=== PATIENT | male | born 1950 | race Caucasian/White ===

== ENCOUNTER 2016-04-30 07:32 | Inpatient (IN) | payer MEDICARE, BC ==
[2016-04-30] VITALS (23 sets, daily range): BP systolic 127–176; BP diastolic 62–100; PULSE 59–108; RESP 16–20; TEMP 97.4–98.8; O2SAT 93–100
[~2016-04-30] VITALS: Ht 162.6 cm; Wt 71.5 kg
[~2016-04-30 07:32] MED LIST: AMLO5TAB22 PO; ASPI81TA82 PO; ATOR80TA41 PO; CALC0.5C6 PO; CENTTAB9 PO; COUM2.5T PO; FURO80 PO; ISOS10TA35 PO; LIDOCAINE HCL 2% 100 MG/5 ML SYRINGE IV PUSH ONE; METO100T PO; MEXI150C PO; NITR0.4S SL; PROT40TA PO
[2016-04-30] MEDS ORDERED: SODIUM CHLORIDE 0.9% FLUSH 5 ML FLUSH IVF PRN (07:45)
[2016-04-30] MEDS ORDERED: SODIUM CHLOR 0.9% 1000 ML INJ 1,000 ML IV ONE (07:45)
[2016-04-30] MEDS ORDERED: NITROGLYCERIN 0.4 MG SL 25 TABS/BTL SL STA (07:45)
[2016-04-30] MEDS ORDERED: ASPIRIN 81 MG CHEW TAB PO STA (07:45)
--- NOTE | 2016-04-30 07:56 | PD ---
HPI Chief Complaint: Chest Pain Time Seen by Provider: 07:41 Travel History International Travel<30 days: No Contact w/Intl Traveler<30days: No Traveled to known affect area: No History of Present Illness HPI This is a 66-year-old male who is a patient of Dr. Angelo Bermeo has had multiple stents placed in the past 2 presents to the emergency Department with onset of chest discomfort at 4 AM this morning described as in the center of his chest, constant, moderate associated with tingling in his left arm, diaphoresis, nausea and some shortness of breath. PFSH Past Medical History Hx Anticoagulant Therapy: Yes (COUMADIN) Arthritis: Yes (RIGHT KNEE, BACK) Heart Rhythm Problems: Yes Cancer: No Cardiovascular Problems: Yes High Cholesterol: Yes Chest Pain: Yes Congestive Heart Failure: Yes Coronary Artery Disease: Yes Diminished Hearing: No Endocrine: No Gastrointestinal Disorders: No Genitourinary: Yes Hypertension: Yes Immune Disorder: No Implanted Vascular Access Dvce: Yes Kidney Stones: Yes Musculoskeletal: Yes (ROTATOR CUFF, RT LEG SURGERY) Neurologic: No Psychiatric: No Reproductive: No Respiratory: No Integumentary: Yes (MRSA) Myocardial Infarction: Yes (TPA) Renal Failure: Yes (2010) Past Surgical History Abdominal Aneurysm Repair: Yes Abdominal Surgery: Yes (aaa repair) AICD: Yes Body Medical Devices: DEFIBRILLATOR Cardiac Surgery: Yes (PACE/ DIFIB, RT/LTCAROTID, 3 vessel bypass) Coronary Artery Bypass Graft: Yes Coronary Stent: Yes (MULTI FEM, HEART) Pacemaker: Yes Valve Replacement: Yes (MITRAL) Other Surgery: Yes Social History Alcohol Use: Yes (rare) Tobacco Use: No (quit 1998) Substance Use: No Allergies-Medications (Allergen,Severity, Reaction): Coded Allergies: No Known Allergies (Unverified , 01/24/15) Reported Meds & Prescriptions Reported Meds & Active Scripts Active Review of Systems Except as stated in HPI: all other systems reviewed are Neg Physical Exam Narrative GENERAL:Well appearing, no acute distress SKIN: Warm and dry. HEAD: Atraumatic. Normocephalic. EYES: Pupils equal and round. No injection or drainage. ENT: Moist mucous membranes NECK: Trachea midline. CARDIOVASCULAR: Regular rate and rhythm. No murmur appreciated. RESPIRATORY: Clear to auscultation. Breath sounds equal bilaterally. GASTROINTESTINAL: Abdomen soft, non-tender, nondistended. MUSCULOSKELETAL: No obvious deformities. NEUROLOGICAL: Awake and alert. No obvious cranial nerve deficits. Moving all extremities PSYCHIATRIC: Appropriate mood and affect; insight and judgment normal. Data Data Last Documented VS Vital Signs Date Time Temp Pulse Resp B/P Pulse Ox O2 Delivery O2 Flow Rate FiO2 04/30/16 07:51 98 Nasal Cannula 2.00 04/30/16 07:40 101 161/100 04/30/16 07:34 97.9 16 Orders Electrocardiogram (04/30/16 ) Troponin I (04/30/16 07:45) Ckmb (Isoenzyme) Profile (04/30/16 07:45) Complete Blood Count With Diff (04/30/16 07:45) I-Stat Profile (04/30/16 07:45) I-Stat Creatinine (04/30/16 07:45) Calcium (04/30/16 07:45) Magnesium (Mg) (04/30/16 07:45) Prothrombin Time / Inr (Pt) (04/30/16 07:45) Act Partial Throm Time (Ptt) (04/30/16 07:45) B-Type Natriuretic Peptide (04/30/16 07:45) Chest, Single Ap (04/30/16 07:45) Oxygen Administration (04/30/16 07:45) Iv Access Insert/Monitor (04/30/16 07:45) Oximetry (04/30/16 07:45) Sodium Chlor 0.9% 1000 Ml Inj (Ns 1000 M (04/30/16 07:45) Sodium Chloride 0.9% Flush (Ns Flush) (04/30/16 07:45) Nitroglycerin Sl (Nitrostat Sl) (04/30/16 07:45) Nitroglycerin-Dextrose Inj (Nitroglyceri (04/30/16 07:45) Aspirin Chew (Aspirin Chew) (04/30/16 07:45) Admit Order (Ed Use Only) (04/30/16 07:56) CKMB (04/30/16 07:55) CKMB% (04/30/16 07:55) Labs Laboratory Tests Test 04/30/16 07:55 White Blood Count 7.9 TH/MM3 Red Blood Count 4.51 MIL/MM3 Hemoglobin 14.1 GM/DL Bedside Hemoglobin 13.9 G/DL Hematocrit 41.1 % Bedside Hematocrit 41.0 % Mean Corpuscular Volume 91.0 FL Mean Corpuscular Hemoglobin 31.3 PG Mean Corpuscular Hemoglobin 34.4 % Concent Red Cell Distribution Width 16.4 % Platelet Count 93 TH/MM3 Mean Platelet Volume 9.2 FL Neutrophils (%) (Auto) 72.0 % Lymphocytes (%) (Auto) 16.9 % Monocytes (%) (Auto) 8.7 % Eosinophils (%) (Auto) 1.5 % Basophils (%) (Auto) 0.9 % Neutrophils # (Auto) 5.7 TH/MM3 Lymphocytes # (Auto) 1.3 TH/MM3 Monocytes # (Auto) 0.7 TH/MM3 Eosinophils # (Auto) 0.1 TH/MM3 Basophils # (Auto) 0.1 TH/MM3 CBC Comment AUTO DIFF Differential Comment AUTO DIFF CONFIRMED Platelet Estimate LOW Platelet Morphology Comment NORMAL Ovalocytes 1+ Prothrombin Time 29.4 SEC Prothromb Time International 2.6 RATIO Ratio Activated Partial 39.7 SEC Thromboplast Time Bedside Sodium 140 MMOL/L Bedside Potassium 5.0 MMOL/L Bedside Chloride 105 MMOL/L Bedside Blood Urea Nitrogen 60 MG/DL Bedside Creatinine 2.0 MG/DL Bedside Glucose 141 MG/DL Calcium Level 8.7 MG/DL Magnesium Level 2.1 MG/DL Total Creatine Kinase 123 U/L Creatine Kinase MB 1.1 NG/ML Troponin I 0.81 NG/ML B-Type Natriuretic Peptide 479 PG/ML MDM Medical Decision Making Medical Screen Exam Complete: Yes Emergency Medical Condition: Yes Interpretation(s) EKG: wide complex, heart rate 102, st segment elevation in II, III and avF, as well as the lateral leads, with st depressions in the inferior leads, q waves inferiorly and laterally, conduction delay and st changes are new from ekg from 2013 Differential Diagnosis STEMI, nSTEMI, pericarditis, pulmonary embolism, pneumonia Narrative Course This is a 66-year-old male who presents to the emergency department with a long history of coronary artery disease and recurrent ventricular tachycardia. He comes in with chest discomfort that started this morning at 4 AM. He is a concerning story for acute coronary syndrome. EKG demonstrates a wide-complex tachycardia. Given its ischemic appearance and the patient's reported history I activated a STEMI alert. Dr. Mauricio came to the bedside and evaluated the patient. Given the patient's history he felt like the patient's symptoms are likely due to ventricular tachycardia. Patient was given amiodarone, lidocaine , and ultimately the decision was made to cardiovert the patient. Cardioversion well without complication. Patient will be admitted to the intensive care unit for further management. Critical Care Narrative Aggregate critical care time was 45 minutes. Time to perform other separately billable procedures was not included in the critical care time. My time did not include minutes spent treating any other patients simultaneously or on activities that did not directly contribute to the patient's treatment. The services I provided to this patient were to treat and/or prevent clinically significant deterioration that could result in: Disability, I provided critical care services requiring my management, as noted below: Chart data review, documentation time, medication orders and management, vital sign assessments/reviewing monitor data, ordering and reviewing lab tests, ordering and interpreting/reviewing x-rays and diagnostic studies, care of the patient and discussion of the patient with the admitting physicians. Procedures Procedure Narrative A synchronized cardioversion was performed along with Dr. Mauricio from cardiology at the bedside. Patient was given 2 mg of Versed for sedation. A synchronized cardioversion was performed at 100 J. Patient tolerated the procedure well. Physician Communication Physician Communication Discussed with Dr. Mauricio and Dr. Duran Diagnosis Primary Impression: Ventricular tachycardia Admitting Information Admitting Physician Requests: Admit Alethea Ingram MD Apr 30, 2016 07:56 Physician Communication Discussed with Dr. Mauricio Diagnosis Primary Impression: Ventricular tachycardia Admitting Information Admitting Physician Requests: it Alethea Ingram MD Apr 30, 2016 07:56
[2016-04-30] MEDS: NITROGLYCERIN-DEXTROSE INJ 250 ML IV SCH (07:59)
[2016-04-30] MEDS ORDERED: AMIODARONE INJ 150 MG in DEXTROSE 5% IN WATER 100ML INJ 97 ML IV ONE ×2 (08:00)
--- NOTE | 2016-04-30 08:02 | RADRPT ---
EXAM DATE/TIME: 04/30/2016 07:52 [facility] COMPARISON: CHEST SINGLE AP, July 06, 2014, 6:29. INDICATIONS : Stemi Alert MEDICAL HISTORY : Cardiovascular disease. SURGICAL HISTORY : CABG. Pacemaker. ENCOUNTER: Initial ACUITY: 1 day PAIN SCORE: 6/10 LOCATION: Bilateral chest FINDINGS: Portable AP view of the chest demonstrate stable mild enlargement of cardiac silhouette in this patie nt post median sternotomy and valve replacement. Left chest wall cardiac pacing device has AICD remai ns present. No effusion, consolidation, or pneumothorax is visualized. Bones and soft tissues demonst rate no acute finding. Please note that the full left costophrenic angle is not visualized. CONCLUSION: Stable mild enlargement of the cardiac silhouette. Otherwise, no acute finding is identified given th e technique. Simón Callaway MD on April 30, 2016 at 8:00 Board Certified Radiologist. This report was verified electronically.
[2016-04-30 08:08] LABS: I-STAT SODIUM 140 MMOL/L (138-146)
[2016-04-30 08:10] LABS: AUTOMATED NEUTROPHIL # 5.7 TH/MM3 (1.8-7.7); BASOPHIL # 0.1 TH/MM3 (0-0.2); BASOPHIL % 0.9 % (0.0-2.0); EOSINOPHIL # 0.1 TH/MM3 (0-0.4); EOSINOPHIL % 1.5 % (0.0-4.0); HEMATOCRIT 41.1 % (39.0-51.0); LYMPH % 16.9 % (9.0-44.0); LYMPHOCYTE # 1.3 TH/MM3 (1.0-4.8); MEAN CORPUSCULAR HEMOGLOBIN 31.3 PG (27.0-34.0); MEAN CORPUSCULAR HGB CONC 34.4 % (32.0-36.0); MONO % 8.7 % (0.0-8.0); PLATELET COUNT 93 TH/MM3 (150-450); RED BLOOD COUNT 4.51 MIL/MM3 (4.50-5.90); RED CELL DISTRIBUTION WIDTH 16.4 % (11.6-17.2); WHITE BLOOD COUNT 7.9 TH/MM3 (4.0-11.0)
[2016-04-30 08:14] LABS: HEMO FLAGS AUTO DIFF
[2016-04-30 08:17] LABS: APTT (PATIENT) 39.7 SEC (24.3-30.1); INTERNATIONAL NORMALIZED RATIO 2.6 RATIO; PROTHROMBIN TIME - PATIENT 29.4 SEC (9.8-11.6)
[2016-04-30 08:25] LABS: CREATINE KINASE 123 U/L (39-308); MAGNESIUM 2.1 MG/DL (1.5-2.5)
[2016-04-30 08:39] LABS: CKMB 1.1 NG/ML (0.5-3.6); OVALOCYTES 1+ (NORMAL); PLATELET ESTIMATE SMEAR LOW (NORMAL); PLATELET MORPHOLOGY NORMAL (NORMAL); SCAN/DIFF AUTO DIFF CONFIRMED
[2016-04-30] MEDS ORDERED: MIDAZOLAM HCL 2 MG/2 ML VIAL IV PUSH ONE (09:00)
[2016-04-30] MEDS ORDERED: LIDOCAINE HCL 2% 100 MG/5 ML SYRINGE IV PUSH ONE (09:00)
[2016-04-30] MEDS ORDERED: FURO1TAB61 PO (09:47)
[2016-04-30] MEDS ORDERED: MEXI150C PO (09:47)
[2016-04-30] MEDS ORDERED: COUM5TAB PO (09:47)
[2016-04-30] MEDS ORDERED: ATOR1TAB18 PO (09:47)
[2016-04-30] MEDS ORDERED: PANT40TA3 PO (09:47)
[2016-04-30] MEDS ORDERED: SOTA120T PO (09:47)
[2016-04-30] MEDS ORDERED: METO50TA PO (09:47)
[2016-04-30] MEDS ORDERED: ISOS60TA PO (09:47)
[2016-04-30] MEDS ORDERED: MISCELLANEOUS NURSING INFORMATION XX SCH (11:00)
[2016-04-30] MEDS ORDERED: CHLORHEXIDINE GLUCONATE 2 % 1 PACK (2 CLOTHS) TOP PRN (11:00)
[2016-04-30] MEDS: LIDOCAINE/D5W INJ 500 ML IV SCH (11:00)
[2016-04-30] MEDS ORDERED: RESP: ALBUTEROL 2.5 MG/IPRATROPIUM 0.5 MG NEB (PRN) INH (11:00)
[2016-04-30] MEDS: RESP: ALBUTEROL 2.5 MG/IPRATROPIUM 0.5 MG NEB (SCH) INH ×4 (11:48→23:30)
[2016-04-30 12:25] LABS: ALT (GPT) 17 U/L (12-78); ANION GAP 6 MEQ/L (5-15); AST (GOT) 27 U/L (15-37); BICARBONATE 27.8 MEQ/L (21.0-32.0); BLOOD UREA NITROGEN 42 MG/DL (7-18); CHLORIDE 109 MEQ/L (98-107); GLOMERULAR FILTRATION RATE 38 ML/MIN (>89); POTASSIUM 4.4 MEQ/L (3.5-5.1); SODIUM (NA) 143 MEQ/L (136-145)
[2016-04-30 12:27] LABS: ALKALINE PHOSPHATASE 103 U/L (45-117); TOTAL BILIRUBIN ADULT 0.5 MG/DL (0.2-1.0)
--- NOTE | 2016-04-30 12:42 | MH ---
cc: SWATI BURRELL M.D. DATE OF ADMISSION: 04/30/2016 DATE OF : 1950 ADMITTING DIAGNOSIS: HISTORY OF PRESENT ILLNESS: The patient is a 66-year-old male with past medical history of coronary artery disease with previous CABG, ischemic cardiomyopathy with EF of 30-35% as June of 2014, status post AICD placement and previous and mechanical mitral valve replacement, in July 1996 on Coumadin.. He presented to [facility] ED with a history of midsternal chest pain. This started at 4 o'clock this morning and localized. He denies any associated symptoms of shortness of breath, edema of the lower extremity, orthopnea or PND. In addition, the patient denies any cough or constitutional symptoms. He was initially presented as a STEMI alert, however, his EKG showed wide complex tachycardia and the patient was evaluated by Dr. Mauricio from cardiology service. He was given amiodarone and lidocaine boluses. The patient also has a history of recurrent V-tach and has been on sotalol at home. He underwent synchronized cardioversion in the ED with 100 joules and the patient tolerated the procedure well. He received Versed 2 mg IV for sedation. LABORATORY DATA: His laboratory data is significant for troponin of 0.81, BNP of 479. His point of care labs showed a creatinine of 2.0 and BUN of 60. Other significant labs showed a coagulopathy with an with an INR of 2.6, PT 29.4 and PTT 39.7. X-RAYS: Chest x-ray in the ER showed mild enlargement of the cardiac silhouette, otherwise no acute findings identified. The patient was eventually placed on lidocaine drip. PAST MEDICAL HISTORY: Significant for coronary artery disease with a previous CABG in 1996 and stent placements, history of carotid artery disease, peripheral vascular disease, history of recurrent V-tach, ischemic cardiomyopathy with EF of 30 to 35%, chronic renal insufficiency, baseline creatinine around 2.0. PAST SURGICAL HISTORY 1. Previous CABG in . 2. Previous right carotid endarterectomy in 1996. 3. Left carotid endarterectomy in April of 1998. 4. Previous left fem pop bypass in 1990. 5. Status post abdominal aortic aneurysm repair in January of 2008. 6. Aortobifemoral bypass and repair of the right common iliac aneurysm January 2008 as well. 7. Previous AICD implant. 8. Previous mitral valve replacement July 1996. Mechanical valve. ALLERGIES NO KNOWN DRUG ALLERGIES. FAMILY HISTORY Noncontributory. SOCIAL HISTORY Patient is an ex-smoker quit smoking in the . Social drinker. MEDICATIONS Medications include: 1. Coumadin. 2. Metoprolol. 3. Sotalol 4. Atorvastatin. 5. Lasix. 6. Imdur 7. Protonix. REVIEW OF SYSTEMS As per HPI. The rest of the review of systems is unremarkable. PHYSICAL EXAMINATION: The patient is a 66 year-old male lying in bed, in no acute respiratory distress. VITAL SIGNS: Temperature 97.4, pulse 59, blood pressure 155/83. Saturation 99% on three liters oxygen. HEENT: Atraumatic, normocephalic. Pupil equal and active to light and accommodation. Extraocular muscles intact. Conjunctivae pink, nonicteric sclerae. Oral mucosa within normal. Neck: Supple. No JVD, adenopathy or thyromegaly. Trachea midline. CARDIOVASCULAR: Regular rate and rhythm. Normal S1-S2. No murmurs, rubs or gallops noted. PULMONARY: Bilateral equal air entry. No rales or wheezing. ABDOMEN: Soft, nontender. No distension. Positive bowel sounds. EXTREMITIES: No cyanosis, clubbing or edema. NEUROLOGIC: No focal sensory deficit. LABORATORY DATA: WBC 7.9, hemoglobin 14.1, hematocrit 41, platelet count 93. Sodium 140, potassium 5, chloride 105, BUN is 60, creatinine 2, glucose 141, troponin 0.81, BNP 479, INR 2.6, PT 29.4, PTT 39.7. RADIOLOGIC STUDIES: Chest x-ray showed mild enlargement of the cardiac silhouette, otherwise no acute findings identified. EKG from 07:42 a.m. showed atrial pacemaker at a rate of 67 beats per minute. Moderate T-wave abnormalities. IMPRESSION 1. Recurrent ventricular tachycardia 2. Respiratory insufficiency. 3. Mechanical mitral valve replacement. 4. Previous AICD placement. 5. Ischemic cardiomyopathy with EF of 30 to 35%. 6. Chronic kidney disease. 7. Coagulopathy secondary to Coumadin. 8. History of coronary artery disease. 9. CABG. 10. Peripheral vascular disease. 11. History of hypertension. RECOMMENDATIONS Monitor neuro status and avoid any sedatives. The patient is awake and alert. Continue with oxygen and maintain sats above 92%. Bronchodilator on a p.r.n. basis. Monitor heart rate and blood pressure closely. Maintain MAP greater than 65 mmHg. The patient is status post synchronized cardioversion with 100 joules in the ED. In addition he received amiodarone and lidocaine boluses. Continue with a lidocaine drip for now. The case discussed with Dr. Mauricio. Will obtain 2-D echocardiogram to evaluate LV function. His last echo from June 2014 showed an EF of 30 to 35%. Monitor renal function, I&O and avoid nephrotoxins. Place on heart healthy diet. Monitor for signs of infection which include fever and WBC. Will hold off on antibiotics at this time as there is no evidence of any infectious process. The patient is afebrile and no evidence of any leukocytosis. His chest x-ray in the ED showed no obvious infiltrates or effusions. Will obtain baseline urinalysis with cultures if indicated. Monitor CBC, PT/INR and continue with Coumadin. His INR was therapeutic at 2.6 on arrival. Pharmacy to manage Coumadin dosing. Sliding scale insulin with Accu-Cheks if needed for glycemic control. GI prophylaxis with Protonix 40 milligrams daily and DVT prophylaxis with SCDs. Will continue with Coumadin. The case discussed with nursing staff and Dr. Mauricio from cardiology. Critical care time: 50 minutes excluding procedures. MD SETH Neely/CHATO /11:15 AM /12:08 PM
--- NOTE | 2016-04-30 13:32 | MB ---
cc: CHADD LEE,DEQUAN PRUITT,SEGUNDO Juarez M.D. DATE OF CONSULTATION: 04/30/2016 REASON FOR CONSULTATION / CHIEF COMPLAINT: Ventricular tachycardia. PRIMARY CARE PHYSICIAN: Dr. Chadd Lee. PRIMARY HOUSE CLEANER: Dr. Segundo Bermeo. HISTORY OF PRESENT ILLNESS: Pablo Hurd is a pleasant 66-year-old male who presented to [facility] on April 30, 2016 complaining of chest pain. He states that the chest pain started around 04:00 a.m. and he tried to work his way through it. He took one nitroglycerin which seemed to help slightly. Upon presenting to the emergency room, EKG was done and there was concern for S-T elevations. I was called emergently to the emergency room for consideration of going to the cardiac catheterization lab. Review of the EKG shows a wide complex tachycardia less likely slow ventricular tachycardia. The patient he states that he had chest pain in the center his chest with tingling into his left arm somewhat. Since being in the emergency room, the chest pain was now a 0. He continues to be in slow ventricular rhythm at 103 beats per minute. PAST MEDICAL HISTORY: 1. Coronary artery disease. 2. Carotid artery disease. 3. Peripheral vascular disease. 4. Ischemic cardiomyopathy with an ejection fraction of 30% to 35% by echocardiogram (July 06, 2014). 5. History of nephrolithiasis. 6. Sustained ventricular tachycardia with multiple episodes of ICD firing in the past. 7. Chronic renal insufficiency. PAST SURGICAL HISTORY: 1. Coronary artery bypass grafting (1996). 2. Multiple stent placements including a 3 mm Multi-Link into the vein graft of the diagonal (November 16, 1999), a 3.5 mm Taxus stent in the vein graft to the diagonal (February 12, 2006), a 2.5 mm Taxus stent in the first obtuse marginal (August 16, 2007). 3. Right carotid endarterectomy (July of 1996). 4. Left carotid endarterectomy (April of 1998). 5. Left femoropopliteal bypass (1990). 6. Abdominal aortic aneurysm repair (January of 2008). 7. Aortobifemoral bypass and repair of a right common iliac aneurysm (January of 2008). 8. Renal artery reimplantation during the time of his abdominal aortic aneurysm repair (January of 2008). 9. Placement of a Medtronic AICD (February of 2006). 10. Mechanical mitral valve replacement (July of 1996). ALLERGIES: NO KNOWN DRUG ALLERGIES. MEDICATIONS: 1. Coumadin 2.5 milligrams daily. 2. Metoprolol tartrate 100 milligrams twice a day. 3. Lipitor 80 milligrams every night. 4. Lasix 40 milligrams daily. 5. Imdur 60 milligrams daily. 6. Nitro sublingual as needed. 7. Aspirin 81 milligrams daily. 8. Mexiletine 50 milligrams three times a day. 9. Protonix 40 milligrams daily. 10. Calcitriol 0.5 micrograms Sunday through . FAMILY HISTORY: Denies premature coronary artery disease or sudden cardiac within the family. SOCIAL HISTORY: The patient quit smoking in 1998. He denies alcohol abuse. REVIEW OF SYSTEMS Fourteen systems were reviewed including osteopathic with pertinent positives and negatives as above; otherwise negative. PHYSICAL EXAMINATION VITAL SIGNS: Temperature 97.9, heart rate 103, blood pressure 127/79, respirations 20, pulse ox 99% on 2 liters. GENERAL: In general, the patient appears in no acute distress. Awake, alert and oriented times three. HEAD, EYES, EARS, NOSE, THROAT: Extraocular muscles intact. Mucous membranes moist. NECK: The neck is supple. No JVD at 45 degrees. HEART: Regular rate and rhythm. Positive first and second heart sounds with a crisp mechanical click. LUNGS: Decreased breath sounds at bilateral bases, but no overt wheezes, rales or rhonchi. ABDOMEN: The abdomen is soft, nontender and nondistended. No organomegaly noted. EXTREMITIES: No clubbing, cyanosis or edema. Femoral and distal pulses are intact bilaterally. NEUROLOGIC: No focal deficits. SKIN: Warm, dry and intact. OSTEOPATHIC: Osteopathically, no kyphoscoliosis, lordosis or paraspinal tender points. LABORATORY WORK: Hemoglobin 14.1, hematocrit 41.1, platelets 93,000. INR 2.6. Potassium 5.0, BUN 60, creatinine 2.0. Troponin 0.81. EKGS: Electrocardiogram (April 30, 2016 at 07:42): Wide complex tachycardia most likely slow ventricular tachycardia. IMPRESSION: 1. Slow ventricular tachycardia with a history of multiple episodes of ventricular tachycardia. 2. Chest pain due to ventricular tachycardia. 3. Coronary artery disease as above. 4. Peripheral vascular disease with a history of left and right carotid endarterectomy, femoropopliteal bypass, abdominal aortic aneurysm repair, aortobifemoral bypass with repair of the right common iliac aneurysm. 5. History of Medtronic AICD implantation (February of 2006). 6. Mechanical mitral valve replacement (July 26, 1996). 7. Ischemic cardiomyopathy with a previous ejection fraction of 30% to 35% by echocardiogram (June 19, 2014). RECOMMENDATIONS: 1. Mr. Hurd appears to be an slow ventricular tachycardia. We will attempt to treat this with amiodarone and lidocaine. 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 2. He may need electrical cardioversion for his slow ventricular tachycardia if unable to pharmacologically convert. 3. We will attempt to have Medtr[employer] come in and interrogate his pacemaker. 4. Elevated troponin most likely from slow ventricular tachycardia since 04:00 a.m. but may need further ischemic work up 5. We will discuss with Dr. Rai about possible need for a ventricular tachycardia ablation versus changes in his ICD management. Thank you for allowing me to see Pablo Hurd. If there are any questions, please do not hesitate to call. Dequan Mauricio DO VGP/JCC /8:39 AM /1:12 PM REBECCA
[2016-04-30] MEDS ORDERED: WARFARIN SOD 2.5 MG TAB PO SCH (16:00)
--- NOTE | 2016-04-30 23:12 | EKG ---
Date Performed: 04/30/2016 Time Performed: 09:06:02 PTAGE: 66 years EKG: ELECTRONIC ATRIAL PACEMAKER INFERIOR MYOCARDIAL INFARCTION MODERATE T-WAVE ABNORMALITY, CON PEDIATRIC DIETICIAN LATERAL ISCHEMIA ABNORMAL ECG PREVIOUS TRACING : 04/30/2016 07.42 Compared to the previous tracing, patient is no longer in v entricular tachycardia, now atrial paced DOCTOR: Dequan Mauricio Interpretating Date/Time 04/30/2016 23:11:08
--- NOTE | 2016-04-30 23:15 | EKG ---
Date Performed: 04/30/2016 Time Performed: 07:42:04 PTAGE: 66 years EKG: Slow ventricular tachycardia, Clinical correlation is recommended PREVIOUS TRACING : 07/03/2014 15.26 Compared to the previous tracing, patient is in VT DOCTOR: Dequan Mauricio Interpretating Date/Time 04/30/2016 23:14:58
[2016-05-01] VITALS (22 sets, daily range): BP systolic 142–169; BP diastolic 71–81; PULSE 59–61; RESP 16–20; TEMP 98.1–98.6; O2SAT 94–99
[2016-05-01] MEDS: LIDOCAINE/D5W INJ 500 ML IV SCH ×2 (02:00→18:40)
[2016-05-01] MEDS: CHLORHEXIDINE GLUCONATE 2 % 1 PACK (2 CLOTHS) TOP SCH (04:00)
[2016-05-01] MEDS: RESP: ALBUTEROL 2.5 MG/IPRATROPIUM 0.5 MG NEB (SCH) INH ×5 (04:10→19:50)
[2016-05-01 04:36] LABS: AUTOMATED NEUTROPHIL # 2.7 TH/MM3 (1.8-7.7); BASOPHIL % 0.6 % (0.0-2.0); EOSINOPHIL # 0.1 TH/MM3 (0-0.4); EOSINOPHIL % 1.8 % (0.0-4.0); HEMATOCRIT 35.3 % (39.0-51.0); LYMPHOCYTE # 0.9 TH/MM3 (1.0-4.8); MEAN CELL VOLUME 89.7 FL (80.0-100.0); MEAN CORPUSCULAR HEMOGLOBIN 30.7 PG (27.0-34.0); MEAN CORPUSCULAR HGB CONC 34.2 % (32.0-36.0); MONO % 8.7 % (0.0-8.0); NEUT % 65.9 % (16.0-70.0); PLATELET COUNT 53 TH/MM3 (150-450); RED BLOOD COUNT 3.93 MIL/MM3 (4.50-5.90); RED CELL DISTRIBUTION WIDTH 16.1 % (11.6-17.2); WHITE BLOOD COUNT 4.1 TH/MM3 (4.0-11.0)
[2016-05-01 04:39] LABS: HEMO FLAGS AUTO DIFF
[2016-05-01 04:45] LABS: INTERNATIONAL NORMALIZED RATIO 2.6 RATIO; PROTHROMBIN TIME - PATIENT 30.1 SEC (9.8-11.6)
[2016-05-01 05:05] LABS: ALT (GPT) 17 U/L (12-78); ANION GAP 8 MEQ/L (5-15); AST (GOT) 25 U/L (15-37); BICARBONATE 26.5 MEQ/L (21.0-32.0); BLOOD UREA NITROGEN 39 MG/DL (7-18); CHLORIDE 108 MEQ/L (98-107); GLOMERULAR FILTRATION RATE 42 ML/MIN (>89); POTASSIUM 4.2 MEQ/L (3.5-5.1); SODIUM (NA) 142 MEQ/L (136-145)
[2016-05-01 05:08] LABS: ALKALINE PHOSPHATASE 92 U/L (45-117); TOTAL BILIRUBIN ADULT 0.5 MG/DL (0.2-1.0)
[2016-05-01 07:56] LABS: PLATELET ESTIMATE SMEAR LOW (NORMAL); PLATELET MORPHOLOGY NORMAL (NORMAL); SCAN/DIFF AUTO DIFF CONFIRMED
--- NOTE | 2016-05-01 08:52 | HHI.CCPN ---
Subjective Remarks/Hospital Course The patient is a 66-year-old male with past medical history of coronary artery disease with previous CABG, ischemic cardiomyopathy with EF of 30-35% as June of 2014, status post AICD placement and previous and mechanical mitral valve replacement, in July 1996 on Coumadin.. He presented to [facility] ED with a history of midsternal chest pain. This started at 4 o'clock this morning and localized. He denies any associated symptoms of shortness of breath, edema of the lower extremity, orthopnea or PND. In addition, the patient denies any cough or constitutional symptoms. He was initially presented as a STEMI alert, however, his EKG showed wide complex tachycardia and the patient was evaluated by Dr. Mauricio from cardiology service. He was given amiodarone and lidocaine boluses. The patient also has a history of recurrent V -tach and has been on sotalol at home. He underwent synchronized cardioversion in the ED with 100 joules and the patient tolerated the procedure well. He received Versed 2 mg IV for sedation. SUBJ 05/01: No VTAC overnight. Currently on Lidocaine infusion. Restart metoprolol with holding parameters. Mexiletine and sotalol will be held per Dr. Mauricio. Consult with EP Dr. Rai pending at this time. Coumadin DCd, Started on IV Heparin, once INR closer to normal plan for cardiac catheterization Objective Vital Signs Date Time Temp Pulse Resp B/P Pulse Ox O2 Delivery O2 Flow Rate FiO2 05/01/16 08:00 59 05/01/16 07:25 94 Nasal Cannula 3.00 05/01/16 07:00 98.1 16 159/79 Result Diagram: 05/01/16 0419 05/01/16 0419 Objective Remarks The patient is a 66 year-old male lying in bed, in no acute respiratory distress. HEENT: Atraumatic, normocephalic. Pupil equal and reactive to light Neck: Supple. No JVD, adenopathy or thyromegaly. Trachea midline. CARDIOVASCULAR: Regular rate and rhythm. Normal S1-S2. No murmurs, rubs or gallops noted. Left upper chest AICD in place PULMONARY: Bilateral equal air entry. No rales or wheezing. ABDOMEN: Soft, nontender. No distension. Positive bowel sounds. EXTREMITIES: No cyanosis, clubbing or edema. NEUROLOGIC: Alert awake oriented 3 no focal deficits A/P Assessment and Plan IMPRESSION Recurrent ventricular tachycardia s/p Mechanical mitral valve replacement on Coumadin Previous AICD placement. Ischemic cardiomyopathy with EF of 30 to 35%. Chronic kidney disease. History of coronary artery disease. CABG. Peripheral vascular disease. History of hypertension. RECOMMENDATIONS NEURO: -Monitor neuro status and avoid any sedatives. RESP: -Continue with oxygen and maintain sats above 92%. -Bronchodilator on a p.r.n. basis. CVS: -The patient is status post synchronized cardioversion with 100 joules in the ED. In addition he received amiodarone and lidocaine boluses. -Continue with a lidocaine drip for now. The case discussed with Dr. Mauricio. EP consulted -Resume metoprolol 100 BID. Keep holding mexiletine and sotalol until EP consulted -2-D echocardiogram to evaluate LV function pending. His last echo from June 2014 showed an EF of 30 to 35%. -Hold Coumadin, start IV heparin. Once INR is close to normal, plan for cardiac catheterization -Keep potassium more than 4, magnesium more than 2 : -Monitor renal function, I&O and avoid nephrotoxins. GI: -Heart healthy diet. ID: -Monitor for signs of infection which include fever and WBC. Hold off on antibiotics at this time as there is no evidence of any infectious process. -The patient is afebrile and no evidence of any leukocytosis. His chest x-ray in the ED showed no obvious infiltrates or effusions. O -Obtain baseline urinalysis with cultures if indicated. Heme: -Monitor CBC, PT/INR and hod Coumadin, start IV Heparin. His INR was therapeutic at 2.6 on arrival. Endo: -Sliding scale insulin with Accu-Cheks if needed for glycemic control. -Keep potassium more than 4, magnesium more than 2 Proph: -GI prophylaxis with Protonix 40 milligrams daily and DVT prophylaxis with SCDs. IV Heparin The case discussed with nursing staff and Dr. Mauricio from cardiology. Level 3 Dariel Gr MD May 01, 2016 08:51
[2016-05-01] MEDS: PANTOPRAZOLE SODIUM 40 MG VIAL IV SCH (09:00)
[2016-05-01] MEDS ORDERED: POTASSIUM PHOSPHATE MONOBASIC 500 MG TAB PO PRN (09:00)
[2016-05-01] MEDS ORDERED: HEPARIN-D5W INJ 250 ML IV SCH (09:00)
[2016-05-01] MEDS ORDERED: POTASSIUM CL 40 MEQ/30 ML LIQ UDC PO/TUBE PRN ×2 (09:00)
[2016-05-01] MEDS ORDERED: POTASSIUM PHOSPHATE MONOBASIC 500 MG TAB PO/TUBE PRN (09:00)
[2016-05-01] MEDS: METOPROLOL TARTRATE 100 MG TAB PO SCH ×2 (09:00→21:00)
[2016-05-01] MEDS ORDERED: POTASSIUM CHLOR 20 MEQ PREMIX 100 ML IV PRN ×2 (09:00)
[2016-05-01] MEDS ORDERED: POTASSIUM PHOSPHATE INJ 30 MMOL in SODIUM CHLOR 0.9% 250 ML INJ 250 ML IV PRN (09:00)
[2016-05-01] MEDS ORDERED: MAGNESIUM OXIDE 400 MG TAB PO PRN (09:00)
[2016-05-01] MEDS ORDERED: POTASSIUM CHLOR 40 MEQ PREMIX 100 ML IV PRN ×2 (09:00)
[2016-05-01] MEDS ORDERED: MAGNESIUM SULFATE INJ 2 GM in SODIUM CHLORIDE 0.9% INJ 96 ML IV PRN (09:00)
[2016-05-01] MEDS ORDERED: MAGNESIUM SULFATE INJ 4 GM in SODIUM CHLORIDE 0.9% INJ 92 ML IV PRN (09:00)
[2016-05-01] MEDS ORDERED: SODIUM PHOSPHATE INJ 30 MMOL in SODIUM CHLOR 0.9% 250 ML INJ 240 ML IV PRN (09:00)
--- NOTE | 2016-05-01 10:09 | PD.CARD.PN ---
Subjective Subjective Remarks No events over night, no chest pain, no shortness of breath Objective Medications Current Medications Medications (Trade) Dose Ordered Sig/Disha Route Start Time Stop Time Status Last Admin IV Flush 2 ml 2 ml UNSCH PRN IVF 04/30/16 07:45 Nitroglycerin/ Dextrose 250 ml @ 0 mls/hr TITRATE IV 04/30/16 07:45 04/30/16 07:59 (Lidocaine/D5W Inj) 500 ml @ 30 mls/hr [id number] IV 04/30/16 09:20 04/30/16 11:00 (Protonix Inj) 40 mg DAILY IV 05/01/16 09:00 Miscellaneous Information 1 [id number] XX 04/30/16 11:00 (Chlorhexidine 2% Cloth) 3 pack Taper DAILY@04 TOP 05/01/16 04:00 04/27/17 03:59 (Chlorhexidine 2% Cloth) 3 pack UNSCH PRN TOP 04/30/16 11:00 (Lopressor) 100 mg BID PO 05/01/16 09:00 (Heparin Inj) 5,000 units UNSCH PRN IV 05/01/16 15:00 Heparin Sodium (Porcine) 2500 units 2,500 units UNSCH PRN IV 05/01/16 15:00 Heparin Sodium/ Dextrose 250 ml @ 0 mls/hr TITRATE IV 05/01/16 09:00 Potassium Chloride 100 ml @ 50 mls/hr Q2H PRN IV 05/01/16 09:00 (KCl 20 Meq Premix Inj) 100 ml @ 50 mls/hr Q2H PRN IV 05/01/16 09:00 Potassium Chloride 40 meq 40 meq UNSCH PRN PO/TUBE 05/01/16 09:00 Potassium Chloride 100 ml @ 25 mls/hr UNSCH PRN IV 05/01/16 09:00 Potassium Chloride 100 ml @ 50 mls/hr Q2H PRN IV 05/01/16 09:00 (Magnesium Sulfate Inj/NS Inj) 100 ml @ 50 mls/hr UNSCH PRN IV 05/01/16 09:00 Magnesium Oxide 800 mg 800 mg UNSCH PRN PO 05/01/16 09:00 (Magnesium Sulfate Inj/NS Inj) 100 ml @ 50 mls/hr UNSCH PRN IV 05/01/16 09:00 Potassium Phosphate 2000 mg 2,000 mg Q4H PRN PO 05/01/16 09:00 (Sodium Phosphate Inj/NS 250 ml Inj) 250 ml @ 42 mls/hr UNSCH PRN IV 05/01/16 09:00 (KCl 40 Meq/30 ml Liq) 40 meq UNSCH PRN PO/TUBE 05/01/16 09:00 Potassium Phosphate 2000 mg 2,000 mg UNSCH PRN PO/TUBE 05/01/16 09:00 (Potassium Phosphate Inj/NS 250 ml Inj) 260 ml @ 42 mls/hr UNSCH PRN IV 05/01/16 09:00 Vital Signs / I&O Vital Signs Date Time Temp Pulse Resp B/P Pulse Ox O2 Delivery O2 Flow Rate FiO2 05/01/16 08:00 59 05/01/16 07:25 94 Nasal Cannula 3.00 05/01/16 07:00 98.1 59 16 159/79 98 05/01/16 07:00 59 05/01/16 06:00 59 05/01/16 05:00 59 05/01/16 04:00 59 05/01/16 03:00 98.6 59 20 145/75 99 05/01/16 03:00 59 05/01/16 02:00 59 05/01/16 01:00 61 05/01/16 00:00 60 04/30/16 23:00 59 04/30/16 23:00 98.3 59 20 165/82 99 04/30/16 22:00 59 04/30/16 21:00 59 04/30/16 19:24 99 Nasal Cannula 3.00 04/30/16 19:00 98.6 59 20 154/78 99 04/30/16 19:00 59 04/30/16 16:00 98.8 59 20 143/78 98 04/30/16 16:00 59 04/30/16 12:00 59 04/30/16 12:00 97.7 59 16 149/79 99 I/O 04/30/16 04/30/16 04/30/16 05/01/16 05/01/16 05/01/16 07:00 15:00 23:00 07:00 15:00 23:00 Intake Total 864 ml Output Total 1150 ml Balance -286 ml Intake Oral 660 ml IV Total 204 ml Output Urine Total 1150 ml # Bowel Movements 0 Physical Exam GENERAL: NAD, AAOx3 SKIN: Warm and dry. HEAD: Atraumatic. Normocephalic. EYES: Pupils equal and round. No scleral icterus. No injection or drainage. ENT: No nasal bleeding or discharge. Mucous membranes pink and moist. NECK: Trachea midline. No JVD. CARDIOVASCULAR: Regular rate and rhythm. [place] mechanical click. RESPIRATORY: No accessory muscle use. Clear to auscultation. Breath sounds equal bilaterally. GASTROINTESTINAL: Abdomen soft, non-tender, nondistended. Hepatic and splenic margins not palpable. MUSCULOSKELETAL: Extremities without clubbing, cyanosis, or edema. No obvious deformities. NEUROLOGICAL: Awake and alert. No obvious cranial nerve deficits. Motor grossly within normal limits. Five out of 5 muscle strength in the arms and legs. Normal speech. PSYCHIATRIC: Appropriate mood and affect; insight and judgment normal. Laboratory Laboratory Tests Test 04/30/16 04/30/16 05/01/16 11:40 15:46 04:19 Sodium Level 143 MEQ/L 142 MEQ/L Potassium Level 4.4 MEQ/L 4.2 MEQ/L Chloride Level 109 MEQ/L 108 MEQ/L Carbon Dioxide Level 27.8 MEQ/L 26.5 MEQ/L Anion Gap 6 MEQ/L 8 MEQ/L Blood Urea Nitrogen 42 MG/DL 39 MG/DL Creatinine 1.80 MG/DL 1.66 MG/DL Estimat Glomerular Filtration 38 ML/MIN 42 ML/MIN Rate Random Glucose 104 MG/DL 81 MG/DL Calcium Level 8.1 MG/DL 8.1 MG/DL Total Bilirubin 0.5 MG/DL 0.5 MG/DL Aspartate Amino Transf 27 U/L 25 U/L (AST/SGOT) Alanine Aminotransferase 17 U/L 17 U/L (ALT/SGPT) Alkaline Phosphatase 103 U/L 92 U/L Troponin I 0.85 NG/ML 1.07 NG/ML Total Protein 6.5 GM/DL 6.5 GM/DL Albumin 3.3 GM/DL 3.1 GM/DL White Blood Count 4.1 TH/MM3 Red Blood Count 3.93 MIL/MM3 Hemoglobin 12.1 GM/DL Hematocrit 35.3 % Mean Corpuscular Volume 89.7 FL Mean Corpuscular Hemoglobin 30.7 PG Mean Corpuscular Hemoglobin 34.2 % Concent Red Cell Distribution Width 16.1 % Platelet Count 53 TH/MM3 Mean Platelet Volume 8.6 FL Neutrophils (%) (Auto) 65.9 % Lymphocytes (%) (Auto) 23.0 % Monocytes (%) (Auto) 8.7 % Eosinophils (%) (Auto) 1.8 % Basophils (%) (Auto) 0.6 % Neutrophils # (Auto) 2.7 TH/MM3 Lymphocytes # (Auto) 0.9 TH/MM3 Monocytes # (Auto) 0.4 TH/MM3 Eosinophils # (Auto) 0.1 TH/MM3 Basophils # (Auto) 0.0 TH/MM3 CBC Comment AUTO DIFF Differential Comment AUTO DIFF CONFIRMED Platelet Estimate LOW Platelet Morphology Comment NORMAL Prothrombin Time 30.1 SEC Prothromb Time International 2.6 RATIO Ratio Assessment and Plan Problem List: (1) Ventricular tachycardia (2) Ischemic cardiomyopathy (3) Thrombocytopenia (4) Coronary artery disease (5) Chronic anticoagulation (6) NSTEMI (non-ST elevation myocardial infarction) (7) H/O mitral valve replacement Assessment and Plan 1) Slow VT on arrival to the hospital, needing cardioversion 2) Currently stable, no VT over night 3) Continue Lidocaine drip, Sotalol/mexiletine on hold for now, await EP cardiology recs 4) Pablo is unsure he would like to stay for work up, had a long talk with him and he will discuss with his , work up planned would be: Heparin drip, allow INR to decrease Eventual cardiac catheterization, would most likely need Plts before procedure If no ischemic lesions, then EP consideration for ICD changes vs VT ablation Heparin drip and Coumadin until INR back in range 5) Will await decision by Pablo and his 6) Will discuss with Dr. Rai about possible other options for the patient from a medical standpoint Dequan Mauricio DO May 01, 2016 10:09
[2016-05-01 10:58] LABS: HEMATOCRIT 38.7 % (39.0-51.0); MEAN CELL VOLUME 91.9 FL (80.0-100.0); MEAN CORPUSCULAR HEMOGLOBIN 30.2 PG (27.0-34.0); MEAN CORPUSCULAR HGB CONC 32.8 % (32.0-36.0); PLATELET COUNT 67 TH/MM3 (150-450); RED BLOOD COUNT 4.21 MIL/MM3 (4.50-5.90); RED CELL DISTRIBUTION WIDTH 16.4 % (11.6-17.2); WHITE BLOOD COUNT 4.4 TH/MM3 (4.0-11.0)
[2016-05-01 11:00] LABS: REVIEW FLAG FINAL
[2016-05-01 11:07] LABS: APTT (PATIENT) 38.6 SEC (24.3-30.1); INTERNATIONAL NORMALIZED RATIO 2.3 RATIO; PROTHROMBIN TIME - PATIENT 26.9 SEC (9.8-11.6)
[2016-05-01] MEDS: SOTALOL HCL 80 MG TAB PO SCH ×2 (13:17→21:24)
[2016-05-01] MEDS: MEXILETINE 150 MG PO SCH ×2 (14:00→22:00)
--- NOTE | 2016-05-01 14:36 | MB ---
cc: YARI CARRANZA HANSCY M.D. DATE OF CONSULTATION: 05/01/2016 REASON FOR CONSULTATION Ventricular tachycardia. HISTORY OF PRESENT ILLNESS Mr. Hurd is a 66-year-old gentleman with a history of coronary artery disease, ischemic cardiomyopathy, peripheral vascular disease, coronary artery bypass grafting, multiple stents, carotid endarterectomy, abdominal aortic aneurysm repair, previous defibrillator implant in 2005. He has a prosthetic valve at mitral valve position. He was admitted due to ventricular tachycardia. The patient was in a slow VT. Subsequently he was cardioverted. Troponin increased. The first one was 0.81. The patient was seen by the quarter supervisor. I was consulted for further evaluation and management. The chart was reviewed. The patient was evaluated. ALLERGIES None. SOCIAL HISTORY At this point the patient denies smoking and drinking. FAMILY HISTORY Noncontributory to his current medical condition. MEDICATIONS 1. Coumadin. 2. Metoprolol 100 mg twice a day. 3. Lipitor 80 mg a day. 4. Lasix 40 mg a day. 5. Imdur 60 mg a day. 6. Aspirin. 7. Mexiletine. 8. Protonix. 9. Calcitriol. REVIEW OF SYSTEMS The patient refers currently no chest pain, no chest discomfort, no vomiting, no fever. PHYSICAL EXAMINATION GENERAL: Alert, fully oriented, in bed. VITAL SIGNS: Blood pressure 115/79, pulse 59, respiratory rate 20. LUNGS: Ventilated. CARDIOVASCULAR: S1, S2 regular. No gallop. ABDOMEN: Soft. No mass. EXTREMITIES: No edema. EKG Electrocardiogram on admission showed ventricular tachycardia. Previous electrocardiogram done in June 2014 indicates sinus rhythm, poor R-wave progression, diffuse ST changes. LABORATORY Hemoglobin 12.7, white blood cell count 4.4. Potassium 4.20, creatinine 1.66. Troponin 1.07. INR 2.6. ASSESSMENT AND RECOMMENDATION Mr. Hurd has ventricular tachycardia. He has severe ischemic cardiomyopathy. He has a previous defibrillator inserted for sudden prevention. The ventricular tachycardia was below the detection zone. The gentleman is already on a beta-yunior. His blood pressure is still high. His troponin increased to 1.07. He will need a left heart catheterization. Based on the result of the left heart catheterization a decision for VT ablation will be taken. I discussed the case extensively with him and his . I explained to the gentleman he needs to have a left heart catheterization but the decision is all his. Apparently he is n.p.o. and case scheduled by Dr. Carranza. The patient apparently wants to go home. If there is no need for revascularization he can be discharged home and follow with me as an outpatient for ventricular tachycardia ablation evaluation. The patient apparently refused to stay because he has things to do at home. Mel Rai MD HS/BT /11:13 AM /2:27 PM
[2016-05-01] MEDS ORDERED: HEPARIN SODIUM - IV 10,000 UNITS/10 ML VIAL IV PRN ×2 (15:00)
--- NOTE | 2016-05-01 16:31 | PD.CONS ---
HPI Service [facility] Hospitalists Consult Requested By Dr. Gr Reason for Consult Medical management, tx from [facility] [place] Primary Care Physician Jr Singleton DO Diagnoses: History of Present Illness This a 66-year-old male with past medical history of cardiomyopathy has AICD, coronary artery disease with previous CABG, mechanical mitral valve replacement in 1996 on chronic anticoagulation with Coumadin, carotid artery disease, prior non-STEMI, CAD and stents. Patient presented to the emergency room on 2016 with complaining of chest pain. During initial evaluation in the emergency room, STEMI alert was called however his EKG showed wide complex tachycardia. Patient received amiodarone and lidocaine boluses. Patient had history of recurrent DVT and had been on sotalol at home. He underwent synchronized cardioversion and to ED with 100 J and patient tolerated procedure well, he was sedated with Versed. Patient evaluated Dr. Burk, patient was noted to be in a slow V. tach. He has consulted Dr. Rai for further evaluation, patient may need cardiac catheterization. Patient was admitted to the intensive care unit under the ad compositor care. Lidocaine drip has been discontinued and the patient was restarted on sotalol. Coumadin is on hold, INR 2.3. Currently patient is on a heparin drip. He has some nitroglycerin treatment mics for chest pain. He has had very little ectopy overnight, no more episodes of ventricular tachycardia. He was also noted with a significant drop in platelets, they went from 93-53. Hematology consult has been put in place. Patient is hemodynamically stable, denies any chest pain, no shortness of breath. He is agreeable with undergoing cardiac catheterization tomorrow. Hospitalist services are requested to assume medical management. (Nathalie Nina) Review of Systems Constitutional: DENIES: Diaphoretic episodes, Fatigue, Fever, Weight gain, Weight loss, Chills, Dizziness, Change in appetite, Night Sweats Endocrine: DENIES: Heat/cold intolerance, Polydipsia, Polyuria, Polyphagia Eyes: DENIES: Blurred vision, Diplopia, Eye inflammation, Eye pain, Vision loss , Photosensitivity, Double Vision Ears, nose, mouth, throat: DENIES: Tinnitus, Hearing loss, Vertigo, Nasal discharge, Oral lesions, Throat pain, Hoarseness, Ear Pain, Running Nose, Epistaxis, Sinus Pain, Toothache, Odynophagia Cardiovascular: COMPLAINS OF: Chest pain, DENIES: Palpitations, Syncope, Dyspnea on Exertion, PND, Lower Extremity Edema, Orthopnea, Claudication Gastrointestinal: DENIES: Abdominal pain, Black stools, Bloody stools, Constipation, Diarrhea, Nausea, Vomiting, Difficulty Swallowing, Anorexia Genitourinary: DENIES: Sexual dysfunction, Urinary frequency, Urinary incontinence, Urgency, Hematuria, Dysuria, Nocturia, Penile Discharge, Testicular Pain, Testicular Swelling Musculoskeletal: DENIES: Joint pain, Muscle aches, Stiffness, Joint Swelling, Back pain, Neck pain Hematologic/lymphatic: DENIES: Bruising, Lymphadenopathy Immunologic/allergic: DENIES: Eczema, Urticaria Neurologic: DENIES: Abnormal gait, Headache, Localized weakness, Paresthesias, Seizures, Speech Problems, Tremor, Poor Balance Psychiatric: DENIES: Anxiety, Confusion, Mood changes, Depression, Hallucinations, Agitation, Suicidal Ideation, Homicidal Ideation, Delusions ( Nathalie Nina) Past Family Social History Past Medical History 1. Coronary artery disease. 2. Carotid artery disease. 3. Peripheral vascular disease. 4. Ischemic cardiomyopathy with an ejection fraction of 30% to 35% by echocardiogram (July 06, 2014). 5. History of nephrolithiasis. 6.ventricular tachycardia 7. Chronic renal insufficiency. Past Surgical History 1. Coronary artery bypass grafting (1996). 2. Multiple stent placements including a 3 mm Multi-Link into the vein graft of the diagonal (November 16, 1999), a 3.5 mm Taxus stent in the vein graft to the diagonal (February 12, 2006), a 2.5 mm Taxus stent in the first obtuse marginal (August 16, 2007). 3. Right carotid endarterectomy (July of 1996). 4. Left carotid endarterectomy (April of 1998). 5. Left femoropopliteal bypass (1990). 6. Abdominal aortic aneurysm repair (January of 2008). 7. Aortobifemoral bypass and repair of a right common iliac aneurysm (January of 2008). 8. Renal artery reimplantation during the time of his abdominal aortic aneurysm repair (January of 2008). 9. Placement of a Medtronic AICD (February of 2006). 10. Mechanical mitral valve replacement (July of 1996). Reported Medications Reported Meds & Active Scripts Active Reported Sotalol (Sotalol HCl) 120 Mg Tab 120 Mg PO BID Pantoprazole (Pantoprazole Sodium) 40 Mg Tab 40 Mg PO DAILY Mexiletine (Mexiletine HCl) 150 Mg Cap 150 Mg PO Q8H Metoprolol Tartrate 50 Mg Tab 100 Mg PO BID Atorvastatin (Atorvastatin Calcium) 80 Mg Tab 80 Mg PO DAILY Isosorbide Mononitrate ER (Isosorbide Mononitrate) 60 Mg Tab 120 Mg PO DAILY Lasix (Furosemide) 80 Mg Tab 40 Mg PO DAILY Coumadin (Warfarin) 5 Mg Tab 2.5 Mg PO DAILY BRAND MEDICALLY NECESSARY (Nathalie Nina) Allergies: Coded Allergies: No Known Allergies (Unverified , 01/24/15) Active Ordered Medications Inpatient Medications Albuterol/ Ipratropium (Duoneb Neb) 1 ampule Q2HR NEB PRN INH WHEEZING; Start 04/30/16 at 11:00 Amiodarone HCl/ Dextrose (Cordarone Inj/ D5W 100 ml Inj) 100 ml @ 600 mls/hr ONCE ONCE IV Last administered on 04/30/16t 08:00; Start 04/30/16 at 08:00; Stop 04/30/16 at 08:09; Status DC Aspirin 162 mg 162 mg NOW STAT PO Last administered on 04/30/16t 07:45; Start 04/30/16 at 07:45; Stop 04/30/16 at 07:47; Status DC Chlorhexidine Gluconate (Chlorhexidine 2% Cloth) 3 pack Taper DAILY@04 TOP ; Start 05/01/16 at 04:00; Stop 04/27/17 at 03:59 Chlorhexidine Gluconate 3 pack 3 pack UNSCH PRN TOP HYGIENIC CARE; Start at 11:00 Heparin Sodium (Porcine) (Heparin Inj) 5,000 units UNSCH PRN IV APTT LESS THAN 25; Start 05/01/16 at 15:00 Heparin Sodium (Porcine) 2500 units 2,500 units UNSCH PRN IV APTT 25 TO 39; Start 05/01/16 at 15:00 Heparin Sodium/ Dextrose 250 ml @ 0 mls/hr TITRATE IV ; Start 05/01/16 at 09:00 IV Flush (NS Flush) 2 ml UNSCH PRN IVF FLUSH AFTER USING IV ACCESS; Start 04/30 at 07:45 Lidocaine HCl (Xylocaine 2% Inj) 100 mg ONCE ONCE IV PUSH Last administered on 04/30/16 08:38; Start 04/30/16 at 09:00; Stop 04/30/16 at 09:01; Status DC Lidocaine HCl/ Dextrose (Lidocaine/D5W Inj) 500 ml @ 30 mls/hr [id number] IV Last administered on 04/30/16 11:00; Start 04/30/16 at 09:20 Magnesium Oxide 800 mg 800 mg UNSCH PRN PO For Magnesium 1.2 - 1.6 mg/dL; Start 05/01/16 at 09:00 Magnesium Sulfate 2 gm/Sodium Chloride 100 ml @ 50 mls/hr UNSCH PRN IV For Magnesium 1.2 - 1.6 mg/dL; Start 05/01/16 at 09:00 Magnesium Sulfate/ Sodium Chloride (Magnesium Sulfate Inj/NS Inj) 100 ml @ 50 mls/hr UNSCH PRN IV For Magnesium 0.9 - 1.1 mg/dL; Start 05/01/16 at 09:00 Metoprolol Tartrate (Lopressor) 100 mg BID PO ; Start 05/01/16 at 09:00 Midazolam HCl 2 mg 2 mg ONCE ONCE IV PUSH Last administered on 04/30/16 09:01 ; Start 04/30/16 at 09:00; Stop 04/30/16 at 09:01; Status DC Miscellaneous Information 1 [id number] ; Start 04/30/16 at 11:00 Nitroglycerin 0.4 mg 0.4 mg NOW STAT SL Last administered on 04/30/16 07:45; Start 04/30/16 at 07:45; Stop 04/30/16 at 07:47; Status DC Nitroglycerin/ Dextrose (Nitroglycerin-Dextrose Inj) 250 ml @ 0 mls/hr TITRATE IV Last administered on 04/30/16 07:59; Start 04/30/16 at 07:45 Pantoprazole Sodium (Protonix Inj) 40 mg DAILY IV ; Start 05/01/16 at 09:00 Patient Own Medication PT OWN MED: M[facility]ILE[facility]... Q8H PO ; Start 05/01/16 at 14:00 Pharmacy Profile Note (Coumadin Consult Pharmacy) 0 ml @ 0 mls/hr UNSCH OTHER ; Start 04/30/16 at 11:30; Stop 04/30/16 at 22:30; Status DC Potassium Chloride 40 meq 40 meq UNSCH PRN PO/TUBE For Potassium 3.3 - 3.5 mEq/ L; Start 05/01/16 at 09:00 Potassium Phosphate 2000 mg 2,000 mg UNSCH PRN PO/TUBE SEE LABEL COMMENTS; Start 05/01/16 at 09:00 Potassium Phosphate/Sodium Chloride (Potassium Phosphate Inj/NS 250 ml Inj) 260 ml @ 42 mls/hr UNSCH PRN IV SEE LABEL COMMENTS; Start 05/01/16 at 09:00 Potassium Chloride (KCl 20 Meq Premix Inj) 100 ml @ 50 mls/hr Q2H PRN IV For Potassium 2.8 - 3.2 mEq/L; Start 05/01/16 at 09:00 Potassium Chloride (KCl 40 Meq/30 ml Liq) 40 meq UNSCH PRN PO/TUBE SEE LABEL COMMENTS; Start 05/01/16 at 09:00 Sodium Chloride (NS 1000 ml Inj) 1,000 ml @ 0 mls/hr Q0M ONCE IV Last administered on 04/30/16 07:45; Start 04/30/16 at 07:45; Stop 04/30/16 at 07:47 ; Status DC Sodium Phosphate/ Sodium Chloride (Sodium Phosphate Inj/NS 250 ml Inj) 250 ml @ 42 mls/hr UNSCH PRN IV For Phosphorus < 2.5 mg/dL; Start 05/01/16 at 09:00 Sotalol HCl (Betapace) 120 mg BID PO Last administered on 05/01/16 13:17; Start 05/01/16 at 13:00 Warfarin Sodium (Coumadin) 2.5 mg DAILY@16 PO Last administered on 04/30/16 15 :51; Start 04/30/16 at 16:00; Stop 04/30/16 at 22:31; Status DC Family History Reviewed, non contributory Social History , lives with . No ETOH, no substance abuse, no smoking. (Nathalie Nina) Physical Exam Vital Signs Vital Signs Date Time Temp Pulse Resp B/P Pulse Ox O2 Delivery O2 Flow Rate FiO2 05/01/16 14:00 59 05/01/16 13:00 59 05/01/16 12:00 60 05/01/16 11:00 60 05/01/16 11:00 98.3 60 16 161/71 97 05/01/16 10:00 60 05/01/16 08:00 59 05/01/16 07:25 94 Nasal Cannula 3.00 05/01/16 07:00 98.1 59 16 159/79 98 05/01/16 07:00 59 05/01/16 06:00 59 05/01/16 05:00 59 05/01/16 04:00 59 05/01/16 03:00 98.6 59 20 145/75 99 05/01/16 03:00 59 05/01/16 02:00 59 05/01/16 01:00 61 05/01/16 00:00 60 04/30/16 23:00 59 04/30/16 23:00 98.3 59 20 165/82 99 04/30/16 22:00 59 04/30/16 21:00 59 04/30/16 19:24 99 Nasal Cannula 3.00 04/30/16 19:00 98.6 59 20 154/78 99 04/30/16 19:00 59 Physical Exam GENERAL: This is a well-nourished, well-developed patient, in no apparent distress. SKIN: No rashes, ecchymoses or lesions. Cool and dry. HEAD: Atraumatic. Normocephalic. No temporal or scalp tenderness. EYES: Pupils equal round and reactive. Extraocular motions intact. No scleral icterus. No injection or drainage. ENT: Nose without bleeding, purulent drainage or septal hematoma. Throat without erythema, tonsillar hypertrophy or exudate. Uvula midline. Airway patent. NECK: Trachea midline. No JVD or lymphadenopathy. Supple, nontender, no meningeal signs. CARDIOVASCULAR: Regular rate and rhythm without murmurs, gallops, or rubs. RESPIRATORY: Clear to auscultation. Breath sounds equal bilaterally. No wheezes , rales, or rhonchi. GASTROINTESTINAL: Abdomen soft, non-tender, nondistended. No hepato-splenomegaly , or palpable masses. No guarding. MUSCULOSKELETAL: Extremities without clubbing, cyanosis, or edema. Chronic venous discoloration. No joint tenderness, effusion, or edema noted. No calf tenderness. Negative Homans sign bilaterally. NEUROLOGICAL: Awake and alert. Cranial nerves II through XII intact. Motor and sensory grossly within normal limits. Five out of 5 muscle strength in all muscle groups. Normal speech. Laboratory Laboratory Tests Test 05/01/16 05/01/16 04:19 09:52 White Blood Count 4.1 4.4 Red Blood Count 3.93 4.21 Hemoglobin 12.1 12.7 Hematocrit 35.3 38.7 Mean Corpuscular Volume 89.7 91.9 Mean Corpuscular Hemoglobin 30.7 30.2 Mean Corpuscular Hemoglobin 34.2 32.8 Concent Red Cell Distribution Width 16.1 16.4 Platelet Count 53 67 Mean Platelet Volume 8.6 8.7 Neutrophils (%) (Auto) 65.9 Lymphocytes (%) (Auto) 23.0 Monocytes (%) (Auto) 8.7 Eosinophils (%) (Auto) 1.8 Basophils (%) (Auto) 0.6 Neutrophils # (Auto) 2.7 Lymphocytes # (Auto) 0.9 Monocytes # (Auto) 0.4 Eosinophils # (Auto) 0.1 Basophils # (Auto) 0.0 CBC Comment AUTO DIFF Differential Comment AUTO DIFF CONFIRMED Platelet Estimate LOW Platelet Morphology Comment NORMAL Prothrombin Time 30.1 26.9 Prothromb Time International 2.6 2.3 Ratio Sodium Level 142 Potassium Level 4.2 Chloride Level 108 Carbon Dioxide Level 26.5 Anion Gap 8 Blood Urea Nitrogen 39 Creatinine 1.66 Estimat Glomerular Filtration 42 Rate Random Glucose 81 Calcium Level 8.1 Total Bilirubin 0.5 Aspartate Amino Transf 25 (AST/SGOT) Alanine Aminotransferase 17 (ALT/SGPT) Alkaline Phosphatase 92 Total Protein 6.5 Albumin 3.1 Activated Partial 38.6 Thromboplast Time Phosphorus Level 2.1 Vitamin B12 Level 716 (Nathalie Nina) Result Diagram: 05/01/16 0952 05/01/16 0419 Imaging Last Impressions Chest X-Ray 04/30/16 0745 Signed Impressions: Service Date/Time: Saturday, April 30, 2016 07:52 - CONCLUSION: Stable mild enlargement of the cardiac silhouette. Otherwise, no acute finding is identified given the technique. Simón Callaway MD (Nathalie Nina) A/P Diagnosis: (1) Ventricular tachycardia (2) Coronary artery disease (3) Ischemic cardiomyopathy (4) Chronic anticoagulation (5) H/O mitral valve replacement (6) Benign hypertension (7) Hyperlipidemia (8) Thrombocytopenia Assessment and Plan Thank you for this consultation, we will assume medical management 66-year-old male with significant past medical history of CAD, NE, stent, AICD, ischemic cardiomyopathy, V. tach. Admitted with c/o chest pain and elevated troponin. Initially code STEMI however patient found in slow VT, status post cardioversion. -Dr. Burk and Dr. Rai following -Pt. going for cardiac cath tomorrow -Coumadin, on hold, continue Heparin drip -Continue with Nitroglycerine drip -Continue Sotalol and Lopressor Thrombocytopenia, etiology unclear Hematology consultation, pending -Monitor CBC Monitor for bleeding Renal insufficiency, creatinine appears stable. Monitor BMP closely Coronary artery disease with previous non-STEMI and CABG Continue home medications Ischemic cardiomyopathy, has AICD Continue with home medications History of mechanical mitral valve replacement, on chronic anticoagulation Continue on heparin drip. Continue with heparin for DVT prophylaxis Protonix for GI prophylaxis Plan of care has been discussed with the patient and his , their questions answered in detail. Plan of care discussed with attending and registered nurse. Further management of the patient will be dependent on the hospital course This patient was seen by myself and Dr. Nice, this consultation is written on his behalf (Nathalie Nina) Assessment and Plan pt is seen & examined d/w PT & his d/w nathalie agree w above cont current tx will f/u (Micah Nice MD) Problem Qualifiers (1) Coronary artery disease: Qualified Code: I25.118 - Coronary artery disease of kashia artery of kashia heart with stable angina pectoris (2) Hyperlipidemia: Qualified Code: E78.5 - Hyperlipidemia, unspecified hyperlipidemia type Nathalie Nina May 01, 2016 16:31 Micah Nice MD May 01, 2016 17:20
[2016-05-01 18:14] LABS: APTT (PATIENT) 80.9 SEC (24.3-30.1)
--- NOTE | 2016-05-01 21:00 | EC ---
Study Study Date:05/01/2016 STUDY CONCLUSIONS SUMMARY - Left ventricle: The cavity size was dilated. Wall thickness was increased in a pattern of mild LVH. Systolic function was severely reduced. The estimated ejection fraction was 25%. Wall motion was normal; there were no regional wall motion abnormalities. - Mitral valve: MV prosthesis present. Transvalvular velocity was within the normal range. There was no evidence for stenosis. - Left atrium: The atrium was mildly dilated. - Tricuspid valve: Mild regurgitation. - Pulmonary arteries: Systolic pressure was mildly increased. PA peak pressure: 47mm Hg (S). If LV function is below 40, please consider prescribing an ACEI or ARB or document rationale for non-use. PROCEDURE DATA STUDY STATUS: Elective. Procedure: Transthoracic echocardiography. Image quality was good. Scanning was performed from the parasternal, apical, and subcostal acoustic windows. Study completion: The patient tolerated the procedure well. Transthoracic echocardiography. M-mode, complete 2D, complete spectral Doppler, and color Doppler. Height: Height: 64in. Weight: Weight: 155.7lb. Body mass index: BMI: 26.8kg/m^2. Body surface area: BSA: 1.76m^2. Patient status: Inpatient. CARDIAC ANATOMY LEFT VENTRICLE: The cavity size was dilated. Wall thickness was increased in a pattern of mild LVH. Systolic function was severely reduced. The estimated ejection fraction was 25%. Wall motion was normal; there were no regional wall motion abnormalities. AORTIC VALVE: Trileaflet; normal thickness leaflets. Doppler: Transvalvular velocity was within the normal range. There was no stenosis. No regurgitation. Valve area: 1.16cm^2(VTI). Indexed valve area: 0.66cm^2/m^2 (VTI). Valve area: 1.25cm^2 (Vmax). Indexed valve area: 0.71cm^2/m^2 (Vmax). Mean gradient: 2mm Hg (S). AORTA: Aortic root: The aortic root was normal in size. MITRAL VALVE: MV prosthesis present. Doppler: Transvalvular velocity was within the normal range. There was no evidence for stenosis. No regurgitation. Valve area by pressure half-time: 2.08cm^2. Indexed valve area by pressure half-time: 1.18cm^2/m^2. Valve area by continuity equation (using LVOT flow): 0.72cm^2. Indexed valve area by continuity equation (using LVOT flow): 0.41cm^2/m^2. Mean gradient: 3mm Hg (D). Peak gradient: 6mm Hg (D). LEFT ATRIUM: The atrium was mildly dilated. RIGHT VENTRICLE: The cavity size was normal. Wall thickness was normal. PULMONIC VALVE: Doppler: Transvalvular velocity was within the normal range. There was no evidence for stenosis. No regurgitation. TRICUSPID VALVE: Structurally normal valve. Doppler: Transvalvular velocity was within the normal range. Mild regurgitation. PULMONARY ARTERY: The main pulmonary artery was normal-sized. Systolic pressure was mildly increased. RIGHT ATRIUM: The atrium was normal in size. PERICARDIUM: There was no pericardial effusion. SYSTEMIC VEINS: Inferior vena cava: The vessel was normal in size. Patient weight: 155.7lb _Ejection fraction:_ 65-75% _Fractional shortening:_ 32% up to 5Kg 5-11.5Kg 11.6-22.9Kg 23-45Kg 45-57Kg Aortic Root 7-13 <17 13-22 17-27 17-27 LA diam 6-13 <23 24-38 33-47 37-40 RVID 10-17 7-15 7-15 7-18 8-17 LVIDd 12-22 <32 24-38 33-47 37-40 LVPW 2-4 3-6 5-7 6-8 7-8 IVS 2-4 3-6 5-7 6-8 7-8 BASIC MEASUREMENTS ADULT NORMAL Left ventricle LV internal dimension, ED, chordal 51.8 mm 43-52 level, PLAX LV internal dimension, ES, chordal *48.4 mm 23-38 level, PLAX Fractional shortening, chordal level, *7 % >29 PLAX LV posterior wall thickness, ED 10.6 mm IVS/LVPW ratio, ED *1.39 <1.3 Ventricular septum Septal thickness, ED 14.7 mm Aortic valve Leaflet separation 15 mm 15-26 Aorta Root diameter, ED 27 mm Left atrium Anterior-posterior dimension 41 mm Anterior-posterior dimension index *2.33 cm/m^2 <2.2 BASIC MEASUREMENTS ADULT NORMAL Aortic valve Leaflet separation 15 mm 15-26 DOPPLER MEASUREMENTS ADULT NORMAL Main pulmonary artery Pressure, S *47 mm Hg =30 Aortic valve Peak velocity, S 99.3 cm/s Mean velocity, S 64.5 cm/s VTI, S 34.5 cm Mean gradient, S 2 mm Hg Valve area, VTI 1.16 cm^2 Valve area index, VTI 0.66 cm^2/m^2 Valve area, Vmax 1.25 cm^2 Valve area index, Vmax 0.71 cm^2/m^2 Mitral valve Peak E-wave velocity 167 cm/s Peak A-wave velocity 104 cm/s Mean velocity, D 78.6 cm/s Deceleration time 229 ms 150-230 Pressure half-time 106 ms Mean gradient, D 3 mm Hg Peak gradient, D 6 mm Hg Peak E/A ratio 1.6 Valve area, pressure half-time 2.08 cm^2 Valve area index, pressure half-time 1.18 cm^2/m^2 Valve area, LVOT continuity 0.72 cm^2 Valve area index, LVOT continuity 0.41 cm^2/m^2 Tricuspid valve Regurgitant peak velocity 307 cm/s Peak RV-RA gradient, S 38 mm Hg Systemic veins Estimated CVP 10 mm Hg Right ventricle RV pressure, S *48 mm Hg <30 Pulmonic valve Peak velocity, S 53.4 cm/s LEGEND: Mean values are shown as u=mean value. Asterisk (*) da silva values outside specified normal range. Prepared and signed by Radha Dietz [id number]
[2016-05-02] MEDS: RESP: ALBUTEROL 2.5 MG/IPRATROPIUM 0.5 MG NEB (SCH) INH ×4 (00:25→11:46)
[2016-05-02] MEDS: NITROGLYCERIN-DEXTROSE INJ 250 ML IV SCH (00:26)
[2016-05-02 01:05] LABS: APTT (PATIENT) 46.6 SEC (24.3-30.1); PROTHROMBIN TIME - PATIENT 22.3 SEC (9.8-11.6)
[2016-05-02 03:00] VITALS: BP 158/80; PULSE 59; RESP 18; TEMP 98.6; O2SAT 95
[2016-05-02] MEDS: CHLORHEXIDINE GLUCONATE 2 % 1 PACK (2 CLOTHS) TOP SCH (04:00)
[2016-05-02] MEDS: MEXILETINE 150 MG PO SCH (06:00)
[2016-05-02 06:59] LABS: AUTOMATED NEUTROPHIL # 2.3 TH/MM3 (1.8-7.7); BASOPHIL % 0.6 % (0.0-2.0); EOSINOPHIL # 0.1 TH/MM3 (0-0.4); EOSINOPHIL % 2.4 % (0.0-4.0); HEMATOCRIT 35.1 % (39.0-51.0); LYMPH % 23.2 % (9.0-44.0); LYMPHOCYTE # 0.8 TH/MM3 (1.0-4.8); MEAN CELL VOLUME 90.7 FL (80.0-100.0); MEAN CORPUSCULAR HEMOGLOBIN 30.8 PG (27.0-34.0); NEUT % 63.8 % (16.0-70.0); PLATELET COUNT 50 TH/MM3 (150-450); RED BLOOD COUNT 3.87 MIL/MM3 (4.50-5.90); RED CELL DISTRIBUTION WIDTH 16.6 % (11.6-17.2); WHITE BLOOD COUNT 3.6 TH/MM3 (4.0-11.0)
[2016-05-02 07:00] VITALS: BP 110/72; PULSE 59; RESP 16; TEMP 98; O2SAT 97
[2016-05-02 07:01] LABS: HEMO FLAGS AUTO DIFF
[2016-05-02 07:07] LABS: APTT (PATIENT) 61.1 SEC (24.3-30.1)
[2016-05-02 07:10] VITALS: O2SAT 94
[2016-05-02 07:39] LABS: ALKALINE PHOSPHATASE 91 U/L (45-117); ALT (GPT) 16 U/L (12-78); ANION GAP 7 MEQ/L (5-15); AST (GOT) 25 U/L (15-37); BICARBONATE 27.5 MEQ/L (21.0-32.0); BLOOD UREA NITROGEN 36 MG/DL (7-18); CHLORIDE 108 MEQ/L (98-107); GLOMERULAR FILTRATION RATE 42 ML/MIN (>89); HDL CHOLESTEROL 46.9 MG/DL (40.0-60.0); LDL CHOLESTEROL 73 MG/DL (0-99); POTASSIUM 4.3 MEQ/L (3.5-5.1); SODIUM (NA) 142 MEQ/L (136-145); TOTAL BILIRUBIN ADULT 0.4 MG/DL (0.2-1.0)
--- NOTE | 2016-05-02 08:44 | HHI.PR ---
Subjective Remarks no cp no sob on Ntg 1.5 mcg Heparin gtt no N/V cardiac cath on hold for now no ectopy, afib, HR 60s Objective Objective Results - Vital Signs Date Time Temp Pulse Resp B/P Pulse Ox O2 Delivery O2 Flow Rate FiO2 05/02/16 07:10 94 21 05/02/16 07:00 59 05/02/16 07:00 98.0 59 16 110/72 97 05/02/16 03:00 59 05/02/16 03:00 98.6 59 18 158/80 95 05/02/16 00:35 18 05/01/16 23:00 98.1 59 18 152/81 95 05/01/16 23:00 59 05/01/16 20:11 98.1 59 17 142/72 96 05/01/16 19:50 Nasal Cannula 3.00 05/01/16 19:00 59 05/01/16 18:00 59 05/01/16 17:00 59 05/01/16 16:00 59 05/01/16 15:00 59 05/01/16 15:00 98.1 59 16 169/81 97 05/01/16 14:00 59 05/01/16 13:00 59 05/01/16 12:00 60 05/01/16 11:00 60 05/01/16 11:00 98.3 60 16 161/71 97 05/01/16 10:00 60 I/O 05/01/16 05/01/16 05/01/16 05/02/16 05/02/16 05/02/16 07:00 15:00 23:00 07:00 15:00 23:00 Intake Total 864 ml 818 ml 367 ml Output Total 1150 ml 1500 ml 750 ml Balance -286 ml -682 ml -383 ml Intake Oral 660 ml 600 ml 240 ml IV Total 204 ml 218 ml 127 ml Output Urine Total 1150 ml 1500 ml 750 ml # Voids 7 # Bowel Movements 0 0 Result Diagram: 05/02/1663205/02/1633 Imaging Last Impressions Chest X-Ray 04/30/16 0745 Signed Impressions: Service Date/Time: Saturday, April 30, 2016 07:52 - CONCLUSION: Stable mild enlargement of the cardiac silhouette. Otherwise, no acute finding is identified given the technique. Simón Callaway MD Other Results Laboratory Tests Test 05/01/16 05/01/16 05/02/16 05/02/16 09:52 17:35 00:39 06:33 White Blood Count 4.4 3.6 Red Blood Count 4.21 3.87 Hemoglobin 12.7 11.9 Hematocrit 38.7 35.1 Mean Corpuscular Volume 91.9 90.7 Mean Corpuscular Hemoglobin 30.2 30.8 Mean Corpuscular Hemoglobin 32.8 34.0 Concent Red Cell Distribution Width 16.4 16.6 Platelet Count 67 50 Mean Platelet Volume 8.7 8.5 Prothrombin Time 26.9 22.3 Prothromb Time International 2.3 2.0 Ratio Activated Partial 38.6 80.9 46.6 61.1 Thromboplast Time Phosphorus Level 2.1 Vitamin B12 Level 716 Neutrophils (%) (Auto) 63.8 Lymphocytes (%) (Auto) 23.2 Monocytes (%) (Auto) 10.0 Eosinophils (%) (Auto) 2.4 Basophils (%) (Auto) 0.6 Neutrophils # (Auto) 2.3 Lymphocytes # (Auto) 0.8 Monocytes # (Auto) 0.4 Eosinophils # (Auto) 0.1 Basophils # (Auto) 0.0 CBC Comment AUTO DIFF Sodium Level 142 Potassium Level 4.3 Chloride Level 108 Carbon Dioxide Level 27.5 Anion Gap 7 Blood Urea Nitrogen 36 Creatinine 1.64 Estimat Glomerular Filtration 42 Rate Random Glucose 90 Calcium Level 8.9 Magnesium Level 2.0 Total Bilirubin 0.4 Aspartate Amino Transf 25 (AST/SGOT) Alanine Aminotransferase 16 (ALT/SGPT) Alkaline Phosphatase 91 Total Protein 6.5 Albumin 3.1 Triglycerides Level 124 Cholesterol Level 145 LDL Cholesterol 73 HDL Cholesterol 46.9 Cholesterol/HDL Ratio 3.09 ROS General: No: Fatigue, Weakness HEENT: No: Sore Throat, Dysphagia Cardiac: Chest Pain, No: Edema, Palpitations, Other Pulmonary: No: Cough, SOB, Wheezing GI: No: Abdominal Pain, BM, Diarrhea, N/V /END PACKER: No: Dysuria, Urgency Neuro/MS: No: Lightheaded, Confusion Psych: No: Anxiety, Depression Skin: No: Itching, Rash Physical Exam Physical Exam GENERAL: This is a well-nourished, well-developed patient, in no apparent distress. SKIN: No rashes, ecchymoses or lesions. Cool and dry. HEAD: Atraumatic. Normocephalic. No temporal or scalp tenderness. EYES: Pupils equal round and reactive. Extraocular motions intact. No scleral icterus. No injection or drainage. ENT: Nose without bleeding, purulent drainage or septal hematoma. Throat without erythema, tonsillar hypertrophy or exudate. Uvula midline. Airway patent. NECK: Trachea midline. No JVD or lymphadenopathy. Supple, nontender, no meningeal signs. CARDIOVASCULAR: Regular rate and rhythm without murmurs, gallops, or rubs. RESPIRATORY: Clear to auscultation. Breath sounds equal bilaterally. No wheezes , rales, or rhonchi. GASTROINTESTINAL: Abdomen soft, non-tender, nondistended. No hepato-splenomegaly , or palpable masses. No guarding. MUSCULOSKELETAL: Extremities without clubbing, cyanosis, or edema. Chronic venous discoloration. No joint tenderness, effusion, or edema noted. No calf tenderness. Negative Homans sign bilaterally. NEUROLOGICAL: Awake and alert. Cranial nerves II through XII intact. Motor and sensory grossly within normal limits. Five out of 5 muscle strength in all muscle groups. Normal speech. Urinary Catheter: No Vascular Central Line Catheter: No A/P Diagnosis: (1) Ventricular tachycardia (2) Coronary artery disease (3) Ischemic cardiomyopathy (4) Chronic anticoagulation (5) H/O mitral valve replacement (6) Benign hypertension (7) Hyperlipidemia (8) Thrombocytopenia Assessment and Plan 66-year-old male with significant past medical history of CAD, DE, stent, AICD, ischemic cardiomyopathy, V. tach. Admitted with c/o chest pain and elevated troponin. Initially code STEMI however patient found in slow VT, status post cardioversion. -Dr. Burk and Dr. Rai following -Coumadin, on hold, Heparin gtt -Continue with Nitroglycerine drip -Continue Sotalol and Lopressor -cath on hold. Card may consider STT as OP.No more ectopy on current meds. waiting for Dr. Rai to decide Thrombocytopenia, etiology unclear, plat 50 today Hematology consultation, pending -Monitor CBC Monitor for bleeding Renal insufficiency, creatinine appears stable. Monitor BMP closely Coronary artery disease with previous non-STEMI and CABG Continue home medications Ischemic cardiomyopathy, has AICD Continue with home medications -repeat Echo today EF 25% History of mechanical mitral valve replacement, on chronic anticoagulation Continue on heparin drip. Continue with heparin for DVT prophylaxis Protonix for GI prophylaxis pt. anxious to go home, prefers to have outpatient workup overall improved no more ectopy poss. discharge today depending on cardiac input D/W RN D/W pt D/W Dr. Nice This patient was seen by myself and Dr. Ncie, this note is written on his behalf Problem Qualifiers (1) Coronary artery disease: Qualified Code: I25.118 - Coronary artery disease of [place] artery of [place] heart with stable angina pectoris (2) Hyperlipidemia: Qualified Code: E78.5 - Hyperlipidemia, unspecified hyperlipidemia type Nathalie Nina May 02, 2016 08:44
[2016-05-02 09:00] LABS: OVALOCYTES 1+ (NORMAL); PLATELET ESTIMATE SMEAR LOW (NORMAL); PLATELET MORPHOLOGY NORMAL (NORMAL); SCAN/DIFF AUTO DIFF CONFIRMED
[2016-05-02] MEDS: PANTOPRAZOLE SODIUM 40 MG VIAL IV SCH (09:00)
[2016-05-02] MEDS: METOPROLOL TARTRATE 100 MG TAB PO SCH (09:13)
[2016-05-02] MEDS: SOTALOL HCL 80 MG TAB PO SCH (09:13)
--- NOTE | 2016-05-02 09:18 | PD.CARD.PN ---
Subjective Subjective Remarks Feels ok. Objective Medications Current Medications Medications (Trade) Dose Ordered Sig/Disha Route Start Time Stop Time Status Last Admin IV Flush 2 ml 2 ml UNSCH PRN IVF 04/30/16 07:45 Nitroglycerin/ Dextrose 250 ml @ 0 mls/hr TITRATE IV 04/30/16 07:45 05/02/16 00:26 (Lidocaine/D5W Inj) 500 ml @ 30 mls/hr [id number] IV 04/30/16 09:20 04/30/16 11:00 (Protonix Inj) 40 mg DAILY IV 05/01/16 09:00 Miscellaneous Information 1 [id number] XX 04/30/16 11:00 (Chlorhexidine 2% Cloth) 3 pack Taper DAILY@04 TOP 05/01/16 04:00 04/27/17 03:59 05/02/16 04:00 (Chlorhexidine 2% Cloth) 3 pack UNSCH PRN TOP 04/30/16 11:00 (Lopressor) 100 mg BID PO 05/01/16 09:00 (Heparin Inj) 5,000 units UNSCH PRN IV 05/01/16 15:00 Heparin Sodium (Porcine) 2500 units 2,500 units UNSCH PRN IV 05/01/16 15:00 Heparin Sodium/ Dextrose 250 ml @ 0 mls/hr TITRATE IV 05/01/16 09:00 Potassium Chloride 100 ml @ 50 mls/hr Q2H PRN IV 05/01/16 09:00 (KCl 20 Meq Premix Inj) 100 ml @ 50 mls/hr Q2H PRN IV 05/01/16 09:00 Potassium Chloride 40 meq 40 meq UNSCH PRN PO/TUBE 05/01/16 09:00 Potassium Chloride 100 ml @ 25 mls/hr UNSCH PRN IV 05/01/16 09:00 Potassium Chloride 100 ml @ 50 mls/hr Q2H PRN IV 05/01/16 09:00 (Magnesium Sulfate Inj/NS Inj) 100 ml @ 50 mls/hr UNSCH PRN IV 05/01/16 09:00 Magnesium Oxide 800 mg 800 mg UNSCH PRN PO 05/01/16 09:00 (Magnesium Sulfate Inj/NS Inj) 100 ml @ 50 mls/hr UNSCH PRN IV 05/01/16 09:00 Potassium Phosphate 2000 mg 2,000 mg Q4H PRN PO 05/01/16 09:00 (Sodium Phosphate Inj/NS 250 ml Inj) 250 ml @ 42 mls/hr UNSCH PRN IV 05/01/16 09:00 (KCl 40 Meq/30 ml Liq) 40 meq UNSCH PRN PO/TUBE 05/01/16 09:00 Potassium Phosphate 2000 mg 2,000 mg UNSCH PRN PO/TUBE 05/01/16 09:00 (Potassium Phosphate Inj/NS 250 ml Inj) 260 ml @ 42 mls/hr UNSCH PRN IV 05/01/16 09:00 (Betapace) 120 mg BID PO 05/01/16 13:00 05/01/16 21:24 Patient Own Medication PT OWN MED: [facility]... Q8H PO 05/01/16 14:00 Vital Signs / I&O Vital Signs Date Time Temp Pulse Resp B/P Pulse Ox O2 Delivery O2 Flow Rate FiO2 05/02/16 07:10 94 21 05/02/16 07:00 59 05/02/16 07:00 98.0 59 16 110/72 97 05/02/16 03:00 59 05/02/16 03:00 98.6 59 18 158/80 95 05/02/16 00:35 18 05/01/16 23:00 98.1 59 18 152/81 95 05/01/16 23:00 59 05/01/16 20:11 98.1 59 17 142/72 96 05/01/16 19:50 Nasal Cannula 3.00 05/01/16 19:00 59 05/01/16 18:00 59 05/01/16 17:00 59 05/01/16 16:00 59 05/01/16 15:00 59 05/01/16 15:00 98.1 59 16 169/81 97 05/01/16 14:00 59 05/01/16 13:00 59 05/01/16 12:00 60 05/01/16 11:00 60 05/01/16 11:00 98.3 60 16 161/71 97 05/01/16 10:00 60 I/O 05/01/16 05/01/16 05/01/16 05/02/16 05/02/16 05/02/16 07:00 15:00 23:00 07:00 15:00 23:00 Intake Total 864 ml 818 ml 367 ml Output Total 1150 ml 1500 ml 750 ml Balance -286 ml -682 ml -383 ml Intake Oral 660 ml 600 ml 240 ml IV Total 204 ml 218 ml 127 ml Output Urine Total 1150 ml 1500 ml 750 ml # Voids 7 # Bowel Movements 0 0 Physical Exam GENERAL: Well-nourished, well-developed patient. SKIN: Warm and dry. HEAD: Normocephalic. EYES: No scleral icterus. No injection or drainage. NECK: Supple, trachea midline. No JVD or lymphadenopathy. CARDIOVASCULAR: Regular rate and rhythm without murmurs, gallops, or rubs. RESPIRATORY: Breath sounds equal bilaterally. No accessory muscle use. GASTROINTESTINAL: Abdomen soft, non-tender, nondistended. EXTREMITIES: No cyanosis, or edema. NEUROLOGICAL: Awake, alert, and oriented x 3. Non-focal. Laboratory Laboratory Tests Test 05/01/16 05/01/16 05/02/16 05/02/16 09:52 17:35 00:39 06:33 White Blood Count 4.4 TH/MM3 3.6 TH/MM3 Red Blood Count 4.21 MIL/MM3 3.87 MIL/MM3 Hemoglobin 12.7 GM/DL 11.9 GM/DL Hematocrit 38.7 % 35.1 % Mean Corpuscular Volume 91.9 FL 90.7 FL Mean Corpuscular Hemoglobin 30.2 PG 30.8 PG Mean Corpuscular Hemoglobin 32.8 % 34.0 % Concent Red Cell Distribution Width 16.4 % 16.6 % Platelet Count 67 TH/MM3 50 TH/MM3 Mean Platelet Volume 8.7 FL 8.5 FL Prothrombin Time 26.9 SEC 22.3 SEC Prothromb Time International 2.3 RATIO 2.0 RATIO Ratio Activated Partial 38.6 SEC 80.9 SEC 46.6 SEC 61.1 SEC Thromboplast Time Phosphorus Level 2.1 MG/DL Vitamin B12 Level 716 PG/ML Neutrophils (%) (Auto) 63.8 % Lymphocytes (%) (Auto) 23.2 % Monocytes (%) (Auto) 10.0 % Eosinophils (%) (Auto) 2.4 % Basophils (%) (Auto) 0.6 % Neutrophils # (Auto) 2.3 TH/MM3 Lymphocytes # (Auto) 0.8 TH/MM3 Monocytes # (Auto) 0.4 TH/MM3 Eosinophils # (Auto) 0.1 TH/MM3 Basophils # (Auto) 0.0 TH/MM3 CBC Comment AUTO DIFF Differential Comment AUTO DIFF CONFIRMED Platelet Estimate LOW Platelet Morphology Comment NORMAL Ovalocytes 1+ Sodium Level 142 MEQ/L Potassium Level 4.3 MEQ/L Chloride Level 108 MEQ/L Carbon Dioxide Level 27.5 MEQ/L Anion Gap 7 MEQ/L Blood Urea Nitrogen 36 MG/DL Creatinine 1.64 MG/DL Estimat Glomerular Filtration 42 ML/MIN Rate Random Glucose 90 MG/DL Calcium Level 8.9 MG/DL Magnesium Level 2.0 MG/DL Total Bilirubin 0.4 MG/DL Aspartate Amino Transf 25 U/L (AST/SGOT) Alanine Aminotransferase 16 U/L (ALT/SGPT) Alkaline Phosphatase 91 U/L Total Protein 6.5 GM/DL Albumin 3.1 GM/DL Triglycerides Level 124 MG/DL Cholesterol Level 145 MG/DL LDL Cholesterol 73 MG/DL HDL Cholesterol 46.9 MG/DL Cholesterol/HDL Ratio 3.09 RATIO Assessment and Plan Problem List: (1) Ventricular tachycardia Assessment and Plan: No recurrence overnight. Can be discharged from EP standpoint with outpatient followup per my d/w Dr. Rai. (2) Ischemic cardiomyopathy Assessment and Plan: F/U with Dr. Mauricio in office for a nuclear stress test. Discussed Condition With ELEUTERIO pt., RN, Dr. Rai. Elise Borrero May 02, 2016 09:18
--- NOTE | 2016-05-02 10:15 | MB ---
cc: OLIVA HALL MD, ABDUL J. M.D. DATE OF CONSULTATION: 05/01/2016 REASON FOR CONSULTATION Consult requested by Dr. Hall for evaluation of thrombocytopenia. HISTORY OF PRESENT ILLNESS Pablo is a pleasant 66-year-old male. He has an extensive cardiac history. He has a history of cardiomyopathy and has an AICD. He also has a history of coronary artery disease status post coronary artery bypass surgery and mechanical heart valve replacement, and has been on Coumadin. The patient was admitted to the hospital with chest pain and he was found to have wide complex tachycardia. The patient received cardioversion with a good response. The patient's INR was 2.6 on admission and Coumadin was held for the procedure. The patient has been on heparin. His CBC showed thrombocytopenia with a platelet count of 93 on admission and this morning went down to 53. It was repeated later in the morning and came back 67. Due to the thrombocytopenia I have been asked to see him for further evaluation. The patient has a history of chronic thrombocytopenia. He is under the care of sulfonation equipment operator, Dr. eZn Bonner. 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 The patient has been on Coumadin with a low platelet count and he has not had any bleeding issues. The patient denies any nausea, vomiting, diarrhea. He does not have any chest pains. The patient is anxious to undergo cardiac catheterization tomorrow. PAST MEDICAL HISTORY 1. Coronary artery disease. 2. Peripheral vascular disease. 3. Ischemic cardiomyopathy with an ejection fraction of 30-35%. 4. Kidney stones. 5. Chronic renal insufficiency. PAST SURGICAL HISTORY 1. Coronary artery bypass surgery. 2. Cardiac catheterization with multiple stent placements. 3. Bilateral carotid endarterectomy. 4. Left femoral popliteal bypass surgery. 5. Abdominal aortic aneurysm repair. 6. AICD placement. 7. Mechanical mitral valve replacement in 1996. ALLERGIES None. MEDICATIONS 1. Sotalol. 2. Pantoprazole. 3. Mexiletine. 4. Metoprolol. 5. Atorvastatin. 6. Isosorbide. 7. Lasix. 8. Coumadin. FAMILY HISTORY Noncontributory. SOCIAL HISTORY The patient does not smoke cigarettes, does not drink alcohol. PHYSICAL EXAMINATION GENERAL: A well-developed, well-nourished white male in no apparent distress. VITAL SIGNS: Temperature 98.1, heart rate 50, blood pressure 169/81. O2 saturation 96%. HEENT: PERRLA. EOMI. Anicteric. No oral lesions noted. NECK: Supple. LYMPHATIC: There is no cervical, supraclavicular or axillary lymphadenopathy noted. LUNGS: Clear. No wheezing, rhonchi or rales. HEART: Regular rate and rhythm. ABDOMEN: Soft, nontender. No hepatosplenomegaly. EXTREMITIES: No pedal edema. NEUROLOGIC: Awake, alert, oriented x3. SKIN: No significant lesions are noted. ASSESSMENT 1. Chronic isolated thrombocytopenia dating back to 2012 per EMR records. This is most likely consistent with a chronic ITP until proven otherwise. 2. Mechanical heart valve replacement, currently on Coumadin since 1996. 3. Ischemic cardiomyopathy status post multiple stent placements as well as coronary artery bypass surgery. 4. Ischemic cardiomyopathy with ejection fraction of 30-35%. PLAN I have reviewed his available records and I have discussed with the patient regarding the thrombocytopenia. The patient is under the care of sulfonation equipment operator, Dr. Zen Bonner, for the thrombocytopenia. He has had chronic isolated thrombocytopenia for many years which I believe is due to chronic ITP. The patient stated that his platelet count has been running low and he has been told that he has chronic ITP which does not require any treatment as his platelet count has been remaining above 50,000. The patient has been on Coumadin and with his chronic thrombocytopenia he has not had any significant bleeding. The patient's Coumadin has been put on hold due to cardiac catheterization which is scheduled for tomorrow. The patient is on heparin. Given that his platelet count is above 50,000 and no previous history of bleeding while on Coumadin, I do not recommend any treatment for the chronic ITP at this time. However, if and when his platelet count goes below 50,000 then he could be treated with steroid and IVIG. The patient stated that I should discuss with his regarding the treatment for chronic ITP if and when his platelet count drops below 50,000. My recommendation is to monitor his CBC closely. If and when his platelet count drops below 50,000 then we will treat him with IVIG and oral steroid if the patient and his both agree. Thank you for asking my opinion. MD LAITH Joe/ELAN /10:54 PM /9:56 AM
--- NOTE | 2016-05-02 10:34 | HHI.DCPOC ---
Discharge Care Plan Diagnosis: (1) Ventricular tachycardia (2) Ischemic cardiomyopathy (3) Chronic anticoagulation (4) Benign hypertension (5) Hyperlipidemia (6) Heart valve replaced (7) Thrombocytopenia Your Health Problems Are: Chest Pain Goals to Promote Your Health * To prevent worsening of your condition and complications * To maintain your health at the optimal level Directions to Meet Your Goals Take your medications as prescribed Follow your dietary instruction Follow activity as directed Keep your appointments as scheduled Take your immunizations and boosters as scheduled If your symptoms worsen call your PCP, if no PCP go to Urgent Care Center or Emergency Room Smoking is Dangerous to Your Health. Avoid second hand smoke Call the 24-hour hour crisis hotline for domestic abuse at Nathalie Nina May 02, 2016 10:34
--- NOTE | 2016-05-02 10:36 | HHI.DS ---
Discharge Summary Admission Date Apr 30, 2016 at 07:57 Discharge Date: May 02, 2016 Admitting Diagnosis stemi (1) Ventricular tachycardia (2) Coronary artery disease (3) Ischemic cardiomyopathy (4) Chronic anticoagulation (5) H/O mitral valve replacement (6) Benign hypertension (7) Hyperlipidemia (8) Thrombocytopenia CBC/BMP: 05/02/16 0633 05/02/16 0633 Significant Findings Laboratory Tests Test 04/30/16 04/30/16 04/30/16 05/01/16 07:55 11:40 15:46 04:19 Platelet Count 93 TH/MM3 53 TH/MM3 (150-450) (150-450) Neutrophils (%) (Auto) 72.0 % (16.0-70.0) Monocytes (%) (Auto) 8.7 % (0.0-8.0) 8.7 % (0.0-8.0) Platelet Estimate LOW (NORMAL) LOW (NORMAL) Ovalocytes 1+ (NORMAL) Prothrombin Time 29.4 SEC 30.1 SEC (9.8-11.6) (9.8-11.6) Activated Partial 39.7 SEC Thromboplast Time (24.3-30.1) Bedside Potassium 5.0 MMOL/L (3.5-4.9) Bedside Blood Urea Nitrogen 60 MG/DL (8-26) Bedside Creatinine 2.0 MG/DL (0.8-1.3) Bedside Glucose 141 MG/DL (60-95) Troponin I 0.81 NG/ML 0.85 NG/ML 1.07 NG/ML (0.02-0.05) (0.02-0.05) (0.02-0.05) B-Type Natriuretic Peptide 479 PG/ML (0-100) Chloride Level 109 MEQ/L 108 MEQ/L (98-107) (98-107) Blood Urea Nitrogen 42 MG/DL (7-18) 39 MG/DL (7-18) Creatinine 1.80 MG/DL 1.66 MG/DL (0.60-1.30) (0.60-1.30) Estimat Glomerular Filtration 38 ML/MIN (>89) 42 ML/MIN (>89) Rate Calcium Level 8.1 MG/DL 8.1 MG/DL (8.5-10.1) (8.5-10.1) Albumin 3.3 GM/DL 3.1 GM/DL (3.4-5.0) (3.4-5.0) Red Blood Count 3.93 MIL/MM3 (4.50-5.90) Hemoglobin 12.1 GM/DL (13.0-17.0) Hematocrit 35.3 % (39.0-51.0) Lymphocytes # (Auto) 0.9 TH/MM3 (1.0-4.8) Test 05/01/16 05/01/16 05/02/16 05/02/16 09:52 17:35 00:39 06:33 Red Blood Count 4.21 MIL/MM3 3.87 MIL/MM3 (4.50-5.90) (4.50-5.90) Hemoglobin 12.7 GM/DL 11.9 GM/DL (13.0-17.0) (13.0-17.0) Hematocrit 38.7 % 35.1 % (39.0-51.0) (39.0-51.0) Platelet Count 67 TH/MM3 50 TH/MM3 (150-450) (150-450) Prothrombin Time 26.9 SEC 22.3 SEC (9.8-11.6) (9.8-11.6) Activated Partial 38.6 SEC 80.9 SEC 46.6 SEC 61.1 SEC Thromboplast Time (24.3-30.1) (24.3-30.1) (24.3-30.1) (24.3-30.1) Phosphorus Level 2.1 MG/DL (2.5-4.9) White Blood Count 3.6 TH/MM3 (4.0-11.0) Monocytes (%) (Auto) 10.0 % (0.0-8.0) Lymphocytes # (Auto) 0.8 TH/MM3 (1.0-4.8) Platelet Estimate LOW (NORMAL) Ovalocytes 1+ (NORMAL) Chloride Level 108 MEQ/L (98-107) Blood Urea Nitrogen 36 MG/DL (7-18) Creatinine 1.64 MG/DL (0.60-1.30) Estimat Glomerular Filtration 42 ML/MIN (>89) Rate Albumin 3.1 GM/DL (3.4-5.0) Imaging Last Impressions Chest X-Ray 04/30/16 5883 Signed Impressions: Service Date/Time: Saturday, April 30, 2016 07:52 - CONCLUSION: Stable mild enlargement of the cardiac silhouette. Otherwise, no acute finding is identified given the technique. Simón Callaway MD Hospital Course This a 66-year-old male with past medical history of cardiomyopathy has AICD, coronary artery disease with previous CABG, mechanical mitral valve replacement in 1996 on chronic anticoagulation with Coumadin, carotid artery disease, prior non-STEMI, CAD and stents. Patient presented to the emergency room on 2016 with complaining of chest pain. During initial evaluation in the emergency room, STEMI alert was called however his EKG showed wide complex tachycardia. Patient received amiodarone and lidocaine boluses. Patient had history of recurrent VT and had been on sotalol at home. He underwent synchronized cardioversion in the ED with 100 J and patient tolerated procedure well, he was sedated with Versed. Patient evaluated by Dr. Burk, patient was noted to be in a slow V. tach. He consulted Dr. Rai for further evaluation, patient may need cardiac catheterization. Patient was admitted to the intensive care unit under the castings trimmer care. Lidocaine drip was discontinued and the patient was restarted on sotalol. Coumadin put on hold, INR 2.3. Put on heparin drip. He has nitroglycerin gtt for chest pain. He had very little ectopy overnight, no more episodes of ventricular tachycardia. He was also noted with a significant drop in platelets, they went from 93-53. Hematology consult in place. Patient was hemodynamically stable, denied any chest pain, no shortness of breath. Hospitalist services were requested to assume medical management. (1) Ventricular tachycardia (2) Coronary artery disease (3) Ischemic cardiomyopathy (4) Chronic anticoagulation (5) H/O mitral valve replacement (6) Benign hypertension (7) Hyperlipidemia (8) Thrombocytopenia During the course of the hospitalization, the following took place: 66-year-old male with significant past medical history of CAD, VA, stent, AICD, ischemic cardiomyopathy, V. tach. Admitted with c/o chest pain and elevated troponin. Initially code STEMI however patient found in slow VT, status post cardioversion. -Dr. Burk and Dr. Rai following -Coumadin put on hold, Heparin gtt started. -Continue with Nitroglycerine drip, which was eventually weaned off -Continued Sotalol and Lopressor -cath was initially planned but then put on hold, pt. without ectopy. Recommendation was to have STT as OP with Dr. Bermeo. Pt. agreeable, anxious to go home. Cleared for discharge. waiting for Dr. Rai to decide Thrombocytopenia, etiology unclear, plat 50 today Hematology evaluated, pt. followed up as OP with Dr. Bonner, has hx of thrombocytopenia. Per hematology, pt. was stable as long as platelets > 50,000 and no bleeding, then no intervention. If plat < 50,000 he would consider IVIG and steroids. -Monitored CBC Monitored for bleeding, no problems developed while in hospital Renal insufficiency, creatinine appeared stable. Monitored BMP closely Coronary artery disease with previous non-STEMI and CABG Continued home medications Ischemic cardiomyopathy, has AICD Continue with home medications -repeat Echo today EF 25% History of mechanical mitral valve replacement, on chronic anticoagulation Continue on heparin drip. INR 1.6, resumed on coumadin. Was discharged home with Lovenox to bridge and f/u INR with PCP Pt. stable for discharge, no more ectopy on current medications Cleared for discharge and instructed to f/u for STT Resume Coumadin and use Lovenox SQ to bridge Pt Condition on Discharge: Stable Discharge Disposition: Discharge Home Discharge Instructions DIET: Follow Instructions for: Heart Healthy Diet, Coumadin (Warfarin) Diet Activities you can perform: Weight Bearing as [place] Follow up Referrals: Cardiology with YARI CARRANZA New Medications: Enoxaparin Inj (Lovenox Inj) 60 Mg/0.6 Ml Syr 60 MG SQ DAILY Blood Clot Prevention #5 Ref 0 SYRINGE Continued Medications: Atorvastatin (Atorvastatin) 80 Mg Tab 80 MG PO DAILY Cholesterol Management #30 Ref 0 TAB Furosemide (Lasix) 80 Mg Tab 40 MG PO DAILY #30 Ref 0 TAB Isosorbide Mononitrate ER (Isosorbide Mononitrate ER) 60 Mg Tab 120 MG PO DAILY Prevent Chest Pain #30 Ref 0 TAB Metoprolol Tartrate (Metoprolol Tartrate) 50 Mg Tab 100 MG PO BID #60 Ref 0 TAB Mexiletine (Mexiletine) 150 Mg Cap 150 MG PO Q8H Regulate Heart Beat #90 Ref 0 CAP Pantoprazole (Pantoprazole) 40 Mg Tab 40 MG PO DAILY Reflux #30 Ref 0 TAB Sotalol (Sotalol) 120 Mg Tab 120 MG PO BID Regulate Heart Beat #60 Ref 0 TAB Warfarin (Coumadin) 5 Mg Tab 2.5 MG PO DAILY BRAND MEDICALLY NECESSARY Blood Clot Prevention #30 Ref 0 TAB Nathalie Nina May 02, 2016 10:36
[2016-05-02 11:00] VITALS: PULSE 59; RESP 16; TEMP 98.3; O2SAT 96
[2016-05-02] MEDS: LIDOCAINE/D5W INJ 500 ML IV SCH (11:20)
--- NOTE | 2016-05-02 12:48 | PD.CARD.PN ---
Subjective Subjective Remarks No chest pain, no shortness of breath, no arrhythmias noted Objective Medications Current Medications Medications (Trade) Dose Ordered Sig/Disha Route Start Time Stop Time Status Last Admin IV Flush 2 ml 2 ml UNSCH PRN IVF 04/30/16 07:45 Nitroglycerin/ Dextrose 250 ml @ 0 mls/hr TITRATE IV 04/30/16 07:45 05/02/16 00:26 (Lidocaine/D5W Inj) 500 ml @ 30 mls/hr [id number] IV 04/30/16 09:20 04/30/16 11:00 (Protonix Inj) 40 mg DAILY IV 05/01/16 09:00 05/02/16 09:00 Miscellaneous Information 1 [id number] XX 04/30/16 11:00 (Chlorhexidine 2% Cloth) 3 pack Taper DAILY@04 TOP 05/01/16 04:00 04/27/17 03:59 05/02/16 04:00 (Chlorhexidine 2% Cloth) 3 pack UNSCH PRN TOP 04/30/16 11:00 (Lopressor) 100 mg BID PO 05/01/16 09:00 05/02/16 09:13 (Heparin Inj) 5,000 units UNSCH PRN IV 05/01/16 15:00 Heparin Sodium (Porcine) 2500 units 2,500 units UNSCH PRN IV 05/01/16 15:00 Heparin Sodium/ Dextrose 250 ml @ 0 mls/hr TITRATE IV 05/01/16 09:00 Potassium Chloride 100 ml @ 50 mls/hr Q2H PRN IV 05/01/16 09:00 (KCl 20 Meq Premix Inj) 100 ml @ 50 mls/hr Q2H PRN IV 05/01/16 09:00 Potassium Chloride 40 meq 40 meq UNSCH PRN PO/TUBE 05/01/16 09:00 Potassium Chloride 100 ml @ 25 mls/hr UNSCH PRN IV 05/01/16 09:00 Potassium Chloride 100 ml @ 50 mls/hr Q2H PRN IV 05/01/16 09:00 (Magnesium Sulfate Inj/NS Inj) 100 ml @ 50 mls/hr UNSCH PRN IV 05/01/16 09:00 Magnesium Oxide 800 mg 800 mg UNSCH PRN PO 05/01/16 09:00 (Magnesium Sulfate Inj/NS Inj) 100 ml @ 50 mls/hr UNSCH PRN IV 05/01/16 09:00 Potassium Phosphate 2000 mg 2,000 mg Q4H PRN PO 05/01/16 09:00 (Sodium Phosphate Inj/NS 250 ml Inj) 250 ml @ 42 mls/hr UNSCH PRN IV 05/01/16 09:00 (KCl 40 Meq/30 ml Liq) 40 meq UNSCH PRN PO/TUBE 05/01/16 09:00 Potassium Phosphate 2000 mg 2,000 mg UNSCH PRN PO/TUBE 05/01/16 09:00 (Potassium Phosphate Inj/NS 250 ml Inj) 260 ml @ 42 mls/hr UNSCH PRN IV 05/01/16 09:00 (Betapace) 120 mg BID PO 05/01/16 13:00 05/02/16 09:13 Patient Own Medication PT OWN MED: MEXILET... Q8H PO 05/01/16 14:00 Vital Signs / I&O Vital Signs Date Time Temp Pulse Resp B/P Pulse Ox O2 Delivery O2 Flow Rate FiO2 05/02/16 11:00 59 05/02/16 11:00 98.3 59 16 96 05/02/16 07:10 94 21 05/02/16 07:00 59 05/02/16 07:00 98.0 59 16 110/72 97 05/02/16 03:00 59 05/02/16 03:00 98.6 59 18 158/80 95 05/02/16 00:35 18 05/01/16 23:00 98.1 59 18 152/81 95 05/01/16 23:00 59 05/01/16 20:11 98.1 59 17 142/72 96 05/01/16 19:50 Nasal Cannula 3.00 05/01/16 19:00 59 05/01/16 18:00 59 05/01/16 17:00 59 05/01/16 16:00 59 05/01/16 15:00 59 05/01/16 15:00 98.1 59 16 169/81 97 05/01/16 14:00 59 05/01/16 13:00 59 I/O 05/01/16 05/01/16 05/01/16 05/02/16 05/02/16 05/02/16 07:00 15:00 23:00 07:00 15:00 23:00 Intake Total 864 ml 818 ml 367 ml Output Total 1150 ml 1500 ml 750 ml Balance -286 ml -682 ml -383 ml Intake Oral 660 ml 600 ml 240 ml IV Total 204 ml 218 ml 127 ml Output Urine Total 1150 ml 1500 ml 750 ml # Voids 7 # Bowel Movements 0 0 Physical Exam GENERAL: NAD, AAOx3 SKIN: Warm and dry. HEAD: Atraumatic. Normocephalic. EYES: Pupils equal and round. No scleral icterus. No injection or drainage. ENT: No nasal bleeding or discharge. Mucous membranes pink and moist. NECK: Trachea midline. No JVD. CARDIOVASCULAR: Regular rate and rhythm. [place] mechanical click. RESPIRATORY: No accessory muscle use. Clear to auscultation. Breath sounds equal bilaterally. GASTROINTESTINAL: Abdomen soft, non-tender, nondistended. Hepatic and splenic margins not palpable. MUSCULOSKELETAL: Extremities without clubbing, cyanosis, or edema. No obvious deformities. NEUROLOGICAL: Awake and alert. No obvious cranial nerve deficits. Motor grossly within normal limits. Five out of 5 muscle strength in the arms and legs. Normal speech. PSYCHIATRIC: Appropriate mood and affect; insight and judgment normal. Laboratory Laboratory Tests Test 05/01/16 05/02/16 05/02/16 17:35 00:39 06:33 Activated Partial 80.9 SEC 46.6 SEC 61.1 SEC Thromboplast Time Prothrombin Time 22.3 SEC Prothromb Time International 2.0 RATIO Ratio White Blood Count 3.6 TH/MM3 Red Blood Count 3.87 MIL/MM3 Hemoglobin 11.9 GM/DL Hematocrit 35.1 % Mean Corpuscular Volume 90.7 FL Mean Corpuscular Hemoglobin 30.8 PG Mean Corpuscular Hemoglobin 34.0 % Concent Red Cell Distribution Width 16.6 % Platelet Count 50 TH/MM3 Mean Platelet Volume 8.5 FL Neutrophils (%) (Auto) 63.8 % Lymphocytes (%) (Auto) 23.2 % Monocytes (%) (Auto) 10.0 % Eosinophils (%) (Auto) 2.4 % Basophils (%) (Auto) 0.6 % Neutrophils # (Auto) 2.3 TH/MM3 Lymphocytes # (Auto) 0.8 TH/MM3 Monocytes # (Auto) 0.4 TH/MM3 Eosinophils # (Auto) 0.1 TH/MM3 Basophils # (Auto) 0.0 TH/MM3 CBC Comment AUTO DIFF Differential Comment AUTO DIFF CONFIRMED Platelet Estimate LOW Platelet Morphology Comment NORMAL Ovalocytes 1+ Sodium Level 142 MEQ/L Potassium Level 4.3 MEQ/L Chloride Level 108 MEQ/L Carbon Dioxide Level 27.5 MEQ/L Anion Gap 7 MEQ/L Blood Urea Nitrogen 36 MG/DL Creatinine 1.64 MG/DL Estimat Glomerular Filtration 42 ML/MIN Rate Random Glucose 90 MG/DL Calcium Level 8.9 MG/DL Magnesium Level 2.0 MG/DL Total Bilirubin 0.4 MG/DL Aspartate Amino Transf 25 U/L (AST/SGOT) Alanine Aminotransferase 16 U/L (ALT/SGPT) Alkaline Phosphatase 91 U/L Total Protein 6.5 GM/DL Albumin 3.1 GM/DL Triglycerides Level 124 MG/DL Cholesterol Level 145 MG/DL LDL Cholesterol 73 MG/DL HDL Cholesterol 46.9 MG/DL Cholesterol/HDL Ratio 3.09 RATIO Assessment and Plan Problem List: (1) Ventricular tachycardia (2) Ischemic cardiomyopathy Assessment and Plan 1) Slow VT on arrival to the hospital, needing cardioversion 2) Currently stable, no VT over night 3) Lidocaine drip off, Sotalol/mexiletine restarted 4) Pablo is unsure he would like to stay for work up, had a long talk with him and he will discuss with his , work up planned would be: Heparin drip, allow INR to decrease Eventual cardiac catheterization, would most likely need Plts before procedure If no ischemic lesions, then EP consideration for ICD changes vs VT ablation Heparin drip and Coumadin until INR back in range 5) Pablo is anxious to get home which is understandable... discussed with Dr. Rai, will discharge and have Pablo follow up with a Dr. Bermeo for a stress test 6) Continue Heparin drip, will restart Coumadin and when INR back to 2.5 can discharge Dequan Mauricio DO May 02, 2016 12:48
[2016-05-02] MEDS ORDERED: ENOX60P SQ (13:45)
[2016-05-02 13:47] LABS: INTERNATIONAL NORMALIZED RATIO 1.6 RATIO; PROTHROMBIN TIME - PATIENT 17.6 SEC (9.8-11.6)
[2016-05-02 15:00] VITALS: PULSE 59; RESP 16; TEMP 98.1; O2SAT 96
--- NOTE | 2016-05-02 15:42 | PD.ONC.PN ---
Subjective Subjective Remarks Afebrile overnight. Patient eager to go home. He states he feels well. Objective Data Date Time Temp Pulse Resp B/P Pulse Ox O2 Delivery O2 Flow Rate FiO2 05/02/16 11:00 59 05/02/16 11:00 98.3 59 16 96 05/02/16 07:10 94 21 05/02/16 07:00 59 05/02/16 07:00 98.0 59 16 110/72 97 05/02/16 03:00 59 05/02/16 03:00 98.6 59 18 158/80 95 05/02/16 00:35 18 05/01/16 23:00 98.1 59 18 152/81 95 05/01/16 23:00 59 05/01/16 20:11 98.1 59 17 142/72 96 05/01/16 19:50 Nasal Cannula 3.00 05/01/16 19:00 59 05/01/16 18:00 59 05/01/16 17:00 59 05/01/16 16:00 59 05/02/16 05/02/16 05/02/16 07:00 15:00 23:00 Intake Total 367 ml Output Total 750 ml Balance -383 ml Result Diagram: 05/02/16 0633 05/02/16 0633 Laboratory Results Laboratory Tests Test 05/01/16 05/02/16 05/02/16 05/02/16 17:35 00:39 06:33 12:55 Activated Partial 80.9 SEC 46.6 SEC 61.1 SEC Thromboplast Time Prothrombin Time 22.3 SEC 17.6 SEC Prothromb Time International 2.0 RATIO 1.6 RATIO Ratio White Blood Count 3.6 TH/MM3 Red Blood Count 3.87 MIL/MM3 Hemoglobin 11.9 GM/DL Hematocrit 35.1 % Mean Corpuscular Volume 90.7 FL Mean Corpuscular Hemoglobin 30.8 PG Mean Corpuscular Hemoglobin 34.0 % Concent Red Cell Distribution Width 16.6 % Platelet Count 50 TH/MM3 Mean Platelet Volume 8.5 FL Neutrophils (%) (Auto) 63.8 % Lymphocytes (%) (Auto) 23.2 % Monocytes (%) (Auto) 10.0 % Eosinophils (%) (Auto) 2.4 % Basophils (%) (Auto) 0.6 % Neutrophils # (Auto) 2.3 TH/MM3 Lymphocytes # (Auto) 0.8 TH/MM3 Monocytes # (Auto) 0.4 TH/MM3 Eosinophils # (Auto) 0.1 TH/MM3 Basophils # (Auto) 0.0 TH/MM3 CBC Comment AUTO DIFF Differential Comment AUTO DIFF CONFIRMED Platelet Estimate LOW Platelet Morphology Comment NORMAL Ovalocytes 1+ Sodium Level 142 MEQ/L Potassium Level 4.3 MEQ/L Chloride Level 108 MEQ/L Carbon Dioxide Level 27.5 MEQ/L Anion Gap 7 MEQ/L Blood Urea Nitrogen 36 MG/DL Creatinine 1.64 MG/DL Estimat Glomerular Filtration 42 ML/MIN Rate Random Glucose 90 MG/DL Calcium Level 8.9 MG/DL Magnesium Level 2.0 MG/DL Total Bilirubin 0.4 MG/DL Aspartate Amino Transf 25 U/L (AST/SGOT) Alanine Aminotransferase 16 U/L (ALT/SGPT) Alkaline Phosphatase 91 U/L Total Protein 6.5 GM/DL Albumin 3.1 GM/DL Triglycerides Level 124 MG/DL Cholesterol Level 145 MG/DL LDL Cholesterol 73 MG/DL HDL Cholesterol 46.9 MG/DL Cholesterol/HDL Ratio 3.09 RATIO Administered Medications Medications (Trade) Dose Ordered Sig/Disha Route PRN Reason Start Time Stop Time Status Last Admin Dose Admin Nitroglycerin/ Dextrose 250 ml @ 0 mls/hr TITRATE IV 04/30/16 07:45 05/02/16 00:26 Lidocaine HCl/ Dextrose (Lidocaine/D5W Inj) 500 ml @ 30 mls/hr [id number] IV 04/30/16 09:20 04/30/16 11:00 Pantoprazole Sodium (Protonix Inj) 40 mg DAILY IV 05/01/16 09:00 05/02/16 09:00 Chlorhexidine Gluconate (Chlorhexidine 2% Cloth) 3 pack Taper DAILY@04 TOP 05/01/16 04:00 04/27/17 03:59 05/02/16 04:00 Metoprolol Tartrate (Lopressor) 100 mg BID PO 05/01/16 09:00 05/02/16 09:13 Sotalol HCl (Betapace) 120 mg BID PO 05/01/16 13:00 05/02/16 09:13 Objective Remarks GENERAL: Middle aged male, sitting up in bed in nad. . SKIN: Warm and dry. HEAD: Normocephalic. EYES: No injection or drainage. NECK: Supple, trachea midline. CARDIOVASCULAR: +S1/S2 RESPIRATORY: Breath sounds equal bilaterally. No accessory muscle use. GASTROINTESTINAL: Abdomen soft, non-tender, nondistended. EXTREMITIES: No cyanosis NEUROLOGICAL: No obvious focal deficit. Awake, alert, and oriented x3. Assessment/Plan Problem List: (1) H/O mitral valve replacement Status: Acute Plan: --on Lovenox bridge to coumadin --patient plans to follow up with Dr. Bermeo for INR monitoring. (2) Thrombocytopenia Status: Chronic Plan: --follow up with Dr. Bonner upon discharge. --if platelet count falls to less than 50K, recommend treatment with IVIG and steroid. 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 Hematology consulted for thrombocytopenia. h/o Ischemic cardiomyopathy status post multiple stent placements as well as coronary artery bypass surgery. ischemic cardiomyopathy with ejection fraction of 30-35%. Attending Statement no c/o, wants to go home plat are low but no bleeding. He wants toseehis hematolosit Dr Bonner upon d/c. The exam, history, and the medical decision-making described in the above note were completed with the assistance of the mid-level provider. I reviewed and agree with the findings presented. I attest that I had a [id number] encounter with the patient on the same day, and personally performed and documented my assessment and findings in the medical record. Jasmin Osuna May 02, 2016 15:42 Con Crooks MD May 02, 2016 22:18
[2016-05-02] MEDS ORDERED: WARFARIN SOD 4 MG TAB PO SCH (16:00)
--- NOTE | 2016-05-08 09:26 | PD.CARD ---
Cardiology Procedure Note Procedure Name: Electrical Cardioversion Procedure Date: Apr 30, 2016 Procedure Note: Pablo presented with slow ventricular tachycardia, he was hemodynamically stable but with some mild chest pain. I attempted to give him an Amiodarone bolus, then a Lidocaine bolus. Neither pharmacologically converted him. Due to this, I decided he needed to be electrically cardioverted. Dr. Ingram gave him 2mg Versed. Once relaxed, he was cardioverted at 100J. Post cardioversion EKG shows normal sinus rhythm. Dequan Mauricio DO May 08, 2016 09:25
== END 2016-05-02 18:10 | disposition home or self-care (01) | DRG 281 ==
LOC: NEPE 07:32 → NEDA 07:57 → HCVR 10:00
PROVIDERS: ADMIT Specialist; ATTEND Specialist
PROC: 5A2204Z Restoration of Cardiac Rhythm, Single (ICD-10-PCS; principal; 2016-04-30)
DX: I47.2 Ventricular tachycardia (principal); I21.4 Non-ST elevation (NSTEMI) myocardial infarction; D69.3 Immune thrombocytopenic purpura; I13.0 Hypertensive heart and chronic kidney disease with heart failure and stage 1 through stage 4 chronic kidney disease, or unspecified chronic kidney disease; I50.9 Heart failure, unspecified; Z95.810 Presence of automatic (implantable) cardiac defibrillator; I25.5 Ischemic cardiomyopathy; I25.118 Atherosclerotic heart disease of native coronary artery with other forms of angina pectoris; E78.5 Hyperlipidemia, unspecified; Z79.01 Long term (current) use of anticoagulants; T45.515A Adverse effect of anticoagulants, initial encounter; Z95.1 Presence of aortocoronary bypass graft; Z95.2 Presence of prosthetic heart valve; E78.00 Pure hypercholesterolemia, unspecified; I25.2 Old myocardial infarction; I73.9 Peripheral vascular disease, unspecified; R06.89 Other abnormalities of breathing; N18.9 Chronic kidney disease, unspecified
CPT/HCPCS: 71010; 80053; 80061; 82310; 82435; 82550; 82552; 82565; 82607; 82947; 83735; 83880; 84100; 84132; 84295; 84484; 84520; 85025; 85027; 85610; 85730; 93005; 93306; 94640; 94664; C9113; J0282; J1644; J2001; J2250; J7030

== ENCOUNTER 2016-06-14 07:25 | Day surgery (SDC) | payer MEDICARE, BC ==
[2016-06-14] VITALS (11 sets, daily range): BP systolic 129–152; BP diastolic 60–85; PULSE 58–61; RESP 16–18; TEMP 97.7–98.4; O2SAT 95–98
[~2016-06-14] VITALS: Ht 162.6 cm; Wt 72.2 kg
[~2016-06-14 07:25] MED LIST changes: -AMLO5TAB22 PO; -ASPI81TA82 PO; +ATOR1TAB18 PO; -ATOR80TA41 PO; -CALC0.5C6 PO; -CENTTAB9 PO; -COUM2.5T PO; +COUM5TAB PO; +ENOX60P SQ; +FURO1TAB61 PO; -FURO80 PO; -ISOS10TA35 PO; +ISOS60TA PO; -LIDOCAINE HCL 2% 100 MG/5 ML SYRINGE IV PUSH ONE; -METO100T PO; +METO50TA PO; -NITR0.4S SL; +PANT40TA3 PO; -PROT40TA PO; +SOTA120T PO
[2016-06-14] MEDS ORDERED: NS 1000P @30 MLS/HR (KVO) IV SCH (08:00)
[2016-06-14 08:19] LABS: AUTOMATED NEUTROPHIL # 4.3 TH/MM3 (1.8-7.7); BASOPHIL % 0.6 % (0.0-2.0); EOSINOPHIL # 0.1 TH/MM3 (0-0.4); EOSINOPHIL % 1.9 % (0.0-4.0); LYMPH % 19.6 % (9.0-44.0); LYMPHOCYTE # 1.3 TH/MM3 (1.0-4.8); MEAN CELL VOLUME 91.2 FL (80.0-100.0); MEAN CORPUSCULAR HEMOGLOBIN 30.4 PG (27.0-34.0); MEAN CORPUSCULAR HGB CONC 33.3 % (32.0-36.0); MONO % 10.7 % (0.0-8.0); NEUT % 67.2 % (16.0-70.0); PLATELET COUNT 92 TH/MM3 (150-450); RED CELL DISTRIBUTION WIDTH 17.4 % (11.6-17.2); WHITE BLOOD COUNT 6.4 TH/MM3 (4.0-11.0)
[2016-06-14 08:21] LABS: HEMO FLAGS AUTO DIFF
[2016-06-14 08:30] LABS: APTT (PATIENT) 29.9 SEC (24.3-30.1); PROTHROMBIN TIME - PATIENT 10.9 SEC (9.8-11.6)
[2016-06-14 08:33] LABS: BICARBONATE 29.2 MEQ/L (21.0-32.0); POTASSIUM 4.1 MEQ/L (3.5-5.1)
[2016-06-14] MEDS ORDERED: AMLO5TAB2 PO (08:36)
[2016-06-14] MEDS ORDERED: FURO40TA PO (08:36)
[2016-06-14] MEDS ORDERED: ASPI81TA81 (08:36)
[2016-06-14] MEDS ORDERED: CENTTAB PO (08:36)
[2016-06-14] MEDS ORDERED: ISOS60TA PO (08:36)
[2016-06-14 08:54] LABS: OVALOCYTES 1+ (NORMAL); PLATELET ESTIMATE SMEAR LOW (NORMAL); PLATELET MORPHOLOGY NORMAL (NORMAL); SCAN/DIFF AUTO DIFF CONFIRMED
[2016-06-14] MEDS ORDERED: HEPARIN-NS/PF INJ 500 ML ONE ×2 (09:45→10:26)
[2016-06-14] MEDS ORDERED: MIDAZOLAM HCL 5 MG/5 ML VIAL ONE (09:45)
[2016-06-14] MEDS ORDERED: BIVALIRUDIN 250 MG VIAL ONE (10:32)
[2016-06-14] MEDS ORDERED: CLOPIDOGREL 300 MG TAB ONE (10:44)
[2016-06-14] MEDS ORDERED: NITROGLYCERIN INJ 5 ML ONE (10:55)
[2016-06-14] MEDS ORDERED: BIVALIRUDIN INJ 250 MG in SODIUM CHLORIDE 0.9% INJ 50 ML IV SCH (11:16)
[2016-06-14] MEDS: SODIUM CHLOR 0.9% 1000 ML INJ 1,000 ML IV SCH ×2 (11:16→21:16)
[2016-06-14] MEDS ORDERED: SODIUM CHLORIDE 0.9% FLUSH 5 ML FLUSH IVF PRN (11:30)
[2016-06-14] MEDS ORDERED: TEMAZEPAM 15 MG CAP PO PRN (11:30)
[2016-06-14] MEDS ORDERED: SODIUM CHLOR 0.9% 250 ML INJ 250 ML IV PRN (11:30)
[2016-06-14] MEDS ORDERED: MORPHINE SULFATE 4 MG/ML INJ IV PUSH PRN (11:30)
[2016-06-14] MEDS ORDERED: ONDANSETRON HCL 4 MG/2 ML VIAL IV PRN (11:30)
[2016-06-14] MEDS ORDERED: ATROPINE SULFATE 1 MG/ML VIAL IV PRN (11:30)
[2016-06-14] MEDS ORDERED: ACETAMINOPHEN 325 MG TAB PO PRN (11:30)
[2016-06-14] MEDS ORDERED: oxyCODONE/ACETAMINOPHEN 5 MG/325 MG TAB PO PRN (11:30)
--- NOTE | 2016-06-14 11:55 | MA ---
cc: SEGUNDO WILSON M.D., JEFFREY D.O. DATE: 06/14/2016 PROCEDURE PERFORMED 1. Coronary angiography. 2. Bypass graft angiography. 3. Balloon angioplasty and stenting of the first obtuse marginal branch of the left circumflex coronary artery. BRIEF HISTORY Pablo Hurd is a 66-year-old man with known coronary artery disease. He had coronary artery bypass grafting on July 08, 1996 along with mechanical mitral valve replacement. He had a stent of the first obtuse marginal branch August 16, 2007 with a 2.5 x 12 mm Taxus. He then had stents of the vein graft to the diagonal branch including a 3.0 x 18 TriStar and a 3.5 x 20 Taxus, last performed on February 12, 2006. He has had problems with sustained ventricular tachycardia at low rates. He was admitted not that long ago with this problem and required cardioversion. He has been having exertional angina, class II. A nuclear stress test showed an inferolateral fixed defect. Prior to any complex procedures for his sustained VT he needed his coronary anatomy defined to see if he needed revascularization. DESCRIPTION OF PROCEDURE The patient was brought to the cardiac laborer wharf in a fasting state. The right groin was prepped and draped in sterile fashion. There was extensive scarring in the right groin from a previous fem-fem bypass. Using 1% lidocaine for local anesthesia the right femoral artery was easily punctured on the first attempt and a guidewire passed up the iliac artery. Exchange wire technique was used throughout the case. Left coronary angiography was completed using a left 4.5 Norm catheter. It was slightly large but it engaged the vessel nicely. Right coronary angiography was completed using a right 4 Norm catheter. Angiography of the vein graft to the diagonal branch was performed using the right Norm catheter. Angiography of the right coronary artery bypass graft was performed using a multipurpose catheter. Angiography of the internal mammary bypass was performed using an DONA catheter. Next I decided to proceed with intervention on the left circumflex obtuse marginal branch. Intravenous Angiomax was given. I wired the circumflex marginal branch with a [employer] wire. I then ballooned it with a 2.0 x 15 mm balloon. I then stented it with a 2.5 x 18 mm Resolute that was deployed at 12 atmospheres and then post dilated the stent with 2.5 x 8 mm NC balloon at 18 atmospheres. Angiography demonstrated a superb result. The patient tolerated the procedure well. PLAN He will have the sheath pulled manually since I did not think a closure device would be feasible with all the scarring in the groin. Will restart his Coumadin. Will continue him on aspirin, Plavix and Coumadin with plans to stop the aspirin at 3 weeks. Will restart Lovenox tomorrow morning. Anticipate discharge tomorrow if stable. ADDENDUM FINDINGS HEMODYNAMICS The aortic pressure was 160/64 with a mean of 101. FLUOROSCOPY Fluoroscopy demonstrates normal motion of the mechanical mitral valve. CORONARY ANGIOGRAPHY The left main coronary artery appears normal. It bifurcates into the LAD and circumflex vessels. The LAD has a complex 90% stenosis after the first septal pen or pencil assembly machine operator branch. It may involve the ostium of the diagonal branch which is grafted. The major obtuse marginal branch comes off early and has evidence for in-stent restenosis with two 90% tandem lesions very proximally. The distal circumflex artery appears normal. The right coronary artery is totally occluded proximally. BYPASS GRAFTS The left internal mammary bypass graft is widely patent to the mid LAD. It fills back to a small diagonal branch but does not fill back more proximal than that. He has a patent vein graft to the diagonal branch. This graft is diffusely irregular. The site of two previous stents are widely patent. There is 50% aorta-ostial disease with no damping. There is about 20% stenosis in the proximal portion of the diagonal. The diagonal branch is only 1.5 mm in size. The third vein graft to the right coronary artery is totally occluded proximally in a stump-like fashion. RESULTS OF INTERVENTION Following stenting of the obtuse marginal branch the 90% stenosis has been reduced to 0% without evidence of thrombus or dissection. CONCLUSIONS 1. Known LV dysfunction. 2. Three-vessel coronary artery disease. 3. Two out of three patent grafts. 4. Restenosis of the circumflex marginal branch, now successfully treated with a drug-eluting stent. MD KENNY Hilton/ELAN /11:11 AM /12:46 PM
[2016-06-14] MEDS ORDERED: MEXILETINE 150 MG PO SCH (13:00)
[2016-06-14] MEDS ORDERED: WARFARIN SOD 5 MG TAB PO SCH (16:00)
--- NOTE | 2016-06-14 18:27 | EKG ---
Date Performed: 06/14/2016 Time Performed: 08:13:10 PTAGE: 66 years EKG: Atrial pacing Prolonged QT interval Inferior infarct - age undetermined Possible anterior i nfarct - age undetermined Lateral ST-T changes may be due to myocardial ischemia Abnormal ECG PREVIOUS TRACING : 04/30/2016 09.06 Unchanged from previous DOCTOR: Shlomo Womack Interpretating Date/Time 06/14/2016 18:26:15
[2016-06-14] MEDS: SODIUM CHLORIDE 0.9% FLUSH 5 ML FLUSH IVF SCH (21:00)
[2016-06-14] MEDS ORDERED: PILL SPLITTER OTHER PRN (21:00)
[2016-06-14] MEDS: FAMOTIDINE 20 MG TAB PO SCH (23:14)
[2016-06-14] MEDS: SOTALOL HCL 80 MG TAB PO SCH (23:14)
[2016-06-14] MEDS: MEXILETINE 150 MG PO SCH (23:15)
[2016-06-15] VITALS (8 sets, daily range): BP systolic 108–156; BP diastolic 63–80; PULSE 58–62; RESP 16–18; TEMP 97.1–97.6; O2SAT 95–97
[2016-06-15 05:10] LABS: AUTOMATED NEUTROPHIL # 2.9 TH/MM3 (1.8-7.7); BASOPHIL % 0.9 % (0.0-2.0); EOSINOPHIL # 0.1 TH/MM3 (0-0.4); EOSINOPHIL % 1.5 % (0.0-4.0); HEMATOCRIT 34.8 % (39.0-51.0); LYMPH % 15.8 % (9.0-44.0); LYMPHOCYTE # 0.6 TH/MM3 (1.0-4.8); MEAN CELL VOLUME 91.3 FL (80.0-100.0); MEAN CORPUSCULAR HEMOGLOBIN 30.3 PG (27.0-34.0); MEAN CORPUSCULAR HGB CONC 33.2 % (32.0-36.0); MONO % 9.7 % (0.0-8.0); NEUT % 72.1 % (16.0-70.0); PLATELET COUNT 55 TH/MM3 (150-450); RED BLOOD COUNT 3.81 MIL/MM3 (4.50-5.90); RED CELL DISTRIBUTION WIDTH 16.4 % (11.6-17.2); WHITE BLOOD COUNT 4.1 TH/MM3 (4.0-11.0)
[2016-06-15 05:18] LABS: HEMO FLAGS AUTO DIFF
[2016-06-15 05:39] LABS: POTASSIUM 4.3 MEQ/L (3.5-5.1)
[2016-06-15] MEDS ORDERED: ENOXAPARIN SODIUM 80 MG/0.8 ML SYRINGE SQ SCH ×2 (07:00→08:00)
[2016-06-15] MEDS: FAMOTIDINE 20 MG TAB PO SCH (08:12)
[2016-06-15] MEDS: SOTALOL HCL 80 MG TAB PO SCH (08:12)
[2016-06-15] MEDS: SODIUM CHLORIDE 0.9% FLUSH 5 ML FLUSH IVF SCH (08:13)
[2016-06-15 08:17] LABS: OVALOCYTES 1+ (NORMAL); PLATELET ESTIMATE SMEAR LOW (NORMAL); PLATELET MORPHOLOGY NORMAL (NORMAL); SCAN/DIFF AUTO DIFF CONFIRMED
[2016-06-15] MEDS ORDERED: amLODIPine BESYLATE 5 MG TAB PO SCH (09:00)
[2016-06-15] MEDS ORDERED: ATORVASTATIN 80 MG TAB PO SCH (09:00)
[2016-06-15] MEDS: MEXILETINE 150 MG PO SCH (09:00)
[2016-06-15] MEDS ORDERED: ASPIRIN 81 MG CHEW TAB PO SCH ×2 (09:00)
[2016-06-15] MEDS ORDERED: CLOPIDOGREL 75 MG TAB PO SCH (09:00)
[2016-06-15] MEDS ORDERED: ISOSORBIDE MONONITRATE 60 MG TAB PO SCH (09:00)
--- NOTE | 2016-06-15 09:24 | PD.CARD.PN ---
Subjective Subjective Remarks Feels fine, no complaints Objective Medications Current Medications Medications (Trade) Dose Ordered Sig/Disha Route Start Time Stop Time Status Last Admin (NS Flush) 2 ml UNSCH PRN IVF 06/14/16 11:30 (NS Flush) 2 ml BID IVF 06/14/16 21:00 06/15/16 08:13 (Tylenol) 325 mg Q4H PRN PO 06/14/16 11:30 06/15/16 04:50 (Percocet 5-325 Mg) 1 tab Q4H PRN PO 06/14/16 11:30 (Morphine Inj) 2 mg Q30M PRN IV PUSH 06/14/16 11:30 (Restoril) 15 mg HS PRN PO 06/14/16 11:30 (Plavix) 75 mg DAILY PO 06/15/16 09:00 06/15/16 08:12 (Atropine Inj) 0.5 mg UNSCH PRN IV 06/14/16 11:30 (Zofran Inj) 4 mg Q4H PRN IV 06/14/16 11:30 (Norvasc) 5 mg DAILY PO 06/15/16 09:00 06/15/16 08:13 (Lipitor) 80 mg DAILY PO 06/15/16 09:00 06/15/16 08:12 (Imdur) 60 mg DAILY PO 06/15/16 09:00 06/15/16 08:11 (Betapace) 120 mg BID PO 06/14/16 21:00 06/15/16 08:12 (Coumadin) 5 mg DAILY@16 PO 06/14/16 16:00 06/14/16 16:05 (Aspirin Chew) 81 mg DAILY PO 06/15/16 09:00 06/15/16 08:12 (Pepcid) 10 mg Q12HR PO 06/14/16 21:00 06/15/16 08:12 (Lovenox Inj) 70 mg Q12H SQ 06/15/16 07:00 (Pill Splitter) 1 ea UNSCH PRN OTHER 06/14/16 21:00 Patient Own Medication PT OWN MED: [facility]... DAILY@09,16,23 PO 06/14/16 23:00 06/15/16 09:00 Vital Signs / I&O Vital Signs Date Time Temp Pulse Resp B/P Pulse Ox O2 Delivery O2 Flow Rate FiO2 06/15/16 08:00 97.1 58 18 156/80 97 06/15/16 08:00 61 06/15/16 08:00 61 06/15/16 06:00 60 06/15/16 05:00 60 06/15/16 04:00 60 06/15/16 03:00 97.6 60 16 108/63 95 06/15/16 03:00 61 06/15/16 02:00 62 06/15/16 01:00 59 06/15/16 00:00 60 06/14/16 23:00 58 06/14/16 23:00 97.7 60 16 134/80 95 06/14/16 22:00 58 06/14/16 21:00 58 06/14/16 20:00 58 06/14/16 19:00 60 06/14/16 19:00 98.4 60 136/68 97 06/14/16 18:00 59 06/14/16 17:00 59 06/14/16 16:00 59 06/14/16 15:35 97.9 61 17 129/60 98 06/14/16 15:00 59 06/14/16 11:22 Room Air I/O 06/14/16 06/14/16 06/14/16 06/15/16 06/15/16 06/15/16 07:00 15:00 23:00 07:00 15:00 23:00 Intake Total 240 ml 360 ml 1480 ml Output Total 100 ml 250 ml 400 ml Balance 140 ml 110 ml 1080 ml Intake Oral 240 ml 240 ml 480 ml IV Total 120 ml 1000 ml Output Urine Total 100 ml 250 ml 400 ml Stool Total 0 ml Physical Exam GENERAL: Well developed, well nourished. No acute distress. HEENT: Jugular venous pressure is normal. CHEST: Lungs clear to auscultation bilaterally. Unlabored respiratory effort. CARDIAC: Regular rate and rhythm. Click S1, nl S2. 1/6 JESSICA. ABDOMEN: Soft, nontender, no hepatosplenomegaly. Bowel sounds present. EXTREMITIES: No clubbing, cyanosis, or edema. Right groin eccyhmotic. No hematoma Laboratory Laboratory Tests Test 06/15/16 04:25 White Blood Count 4.1 TH/MM3 Red Blood Count 3.81 MIL/MM3 Hemoglobin 11.5 GM/DL Hematocrit 34.8 % Mean Corpuscular Volume 91.3 FL Mean Corpuscular Hemoglobin 30.3 PG Mean Corpuscular Hemoglobin 33.2 % Concent Red Cell Distribution Width 16.4 % Platelet Count 55 TH/MM3 Mean Platelet Volume 8.3 FL Neutrophils (%) (Auto) 72.1 % Lymphocytes (%) (Auto) 15.8 % Monocytes (%) (Auto) 9.7 % Eosinophils (%) (Auto) 1.5 % Basophils (%) (Auto) 0.9 % Neutrophils # (Auto) 2.9 TH/MM3 Lymphocytes # (Auto) 0.6 TH/MM3 Monocytes # (Auto) 0.4 TH/MM3 Eosinophils # (Auto) 0.1 TH/MM3 Basophils # (Auto) 0.0 TH/MM3 CBC Comment AUTO DIFF Differential Comment AUTO DIFF CONFIRMED Platelet Estimate LOW Platelet Morphology Comment NORMAL Ovalocytes 1+ Sodium Level 144 MEQ/L Potassium Level 4.3 MEQ/L Chloride Level 109 MEQ/L Carbon Dioxide Level 26.0 MEQ/L Anion Gap 9 MEQ/L Blood Urea Nitrogen 29 MG/DL Creatinine 1.42 MG/DL Estimat Glomerular Filtration 50 ML/MIN Rate Random Glucose 87 MG/DL Calcium Level 8.3 MG/DL Total Creatine Kinase 44 U/L Assessment and Plan Problem List: (1) History of mitral valve replacement with mechanical valve Assessment and Plan: Nl function. Warfarin resumed. Continue Lovenox 60mg bis SQ at home until INR > 2.5 and then DC lovenox (2) Thrombocytopenia Assessment and Plan: Chronic. Usually 60'-70's K. Spoke to Dr. Bonner. OK as long as > 50K. F/U CBC 1 week (3) Coronary artery disease Assessment and Plan: No angina (4) Ventricular tachycardia Assessment and Plan: No recurrence (5) Ischemic cardiomyopathy Assessment and Plan: CHF Class 2 stable (6) Chronic renal insufficiency Assessment and Plan: Creat stable (7) Stented coronary artery Assessment and Plan: Continue Ecotrin 81mg for 2 weeks. Continue clopidogrel 3- 6 months. Assessment and Plan DC home. F/U OV 2 weeks Discussed Condition With and pt. Angelo Bermeo MD Jun 15, 2016 09:24
[2016-06-15] MEDS ORDERED: PLAV75TA29 PO (09:36)
--- NOTE | 2016-06-15 10:44 | EKG ---
Date Performed: 06/14/2016 Time Performed: 12:34:36 PTAGE: 66 years EKG: Demand atrial pacing Prolonged QT interval Inferior infarct - age undetermined Possible ant erior infarct - age undetermined Lateral ST-T changes may be due to myocardial ischemia Abnormal ECG PREVIOUS TRACING : 06/14/2016 08.13 Compared to prior tracing no significant change DOCTOR: Angelo Bermeo Interpretating Date/Time 06/15/2016 10:42:34
--- NOTE | 2016-06-15 10:44 | EKG ---
Date Performed: 06/15/2016 Time Performed: 05:50:22 PTAGE: 66 years EKG: Atrial pacing Prolonged QT interval Inferior infarct - age undetermined Lateral ST-T change s may be due to myocardial ischemia Abnormal ECG PREVIOUS TRACING : 06/14/2016 12.34 Compared to prior tracing no significant change DOCTOR: Angelo Bermeo Interpretating Date/Time 06/15/2016 10:42:42
== END 2016-06-15 09:50 | disposition home or self-care (01) ==
LOC: HDIC 07:25 → HDOC 07:25 → HCIN 15:38 → HDOC 06-15 09:50
PROVIDERS: ATTEND Internal Medicine Cardiovascular Disease
DX: I25.10 Atherosclerotic heart disease of native coronary artery without angina pectoris (principal); I47.2 Ventricular tachycardia; I25.5 Ischemic cardiomyopathy; N18.9 Chronic kidney disease, unspecified; I12.9 Hypertensive chronic kidney disease with stage 1 through stage 4 chronic kidney disease, or unspecified chronic kidney disease; I50.9 Heart failure, unspecified; D69.6 Thrombocytopenia, unspecified; Z95.2 Presence of prosthetic heart valve; Z95.5 Presence of coronary angioplasty implant and graft; Z79.01 Long term (current) use of anticoagulants; Z79.82 Long term (current) use of aspirin
CPT/HCPCS: 80048; 82550; 85025; 85610; 85730; 92928; 93005; 93454; C1725; C1769; C1874; C1887; C1893; J0583; J1644; J2250; J3010; J7030